=== PATIENT | female | born 1985 | race Caucasian/White ===

== ENCOUNTER 2019-05-01 13:27 | Outpatient (RCR) | payer OTHER, SELFPAY ==
[2019-05-01 14:31] VITALS: BP 131/71
== END 2019-07-28 07:46 | disposition home or self-care (01) ==
LOC: ANHOBOP 13:27
PROVIDERS: PCP Internal Medicine; Visit Provider Obstetrics & Gynecology
DX: O36.8130 Decreased fetal movements, third trimester, not applicable or unspecified (principal); Z3A.38 38 weeks gestation of pregnancy
CPT/HCPCS: 59025

== ENCOUNTER 2021-03-23 10:00 | Outpatient (RCR) | payer OTHER, SELFPAY ==
--- NOTE | 2021-02-09 14:14 | PTOPEVAL ---
INITIAL PHYSICAL THERAPY EVALUATION and PLAN OF CARE Thank you for referring Em Baez to [facility].? Em is scheduled to be seen for physical therapy? 2x/week for 6 weeks. Please review, sign, date and return this plan of care JAIDEN. I agree with and certify that the following plan of care is medically necessary. Referring Physician Date Admitting Provider: Attending Provider: Scott Morfin MD Referring Provider: *PT Outpatient Evaluation Start: 02/09/21 13:03 Freq: Status: Active Protocol: Document 02/09/21 13:03 RACHEL (Rec: 02/09/21 14:13 RACHEL [id number]) Therapy Assessment Status Assessment Status Assessment Status Evaluation Outpatient Past Medical History Past Medical History Source of Past Medical History Recalled from Previous Visit, Confirmed with Patient/Family Neurological History Hx Neurological Disorders No Significant History Cardiovascular History Hx Cardiac Disorders No Significant History Respiratory History Hx Asthma Yes Gastrointestinal History Hx Gastrointestinal Disorders No Significant History Genitourinary History Hx Genitourinary Disorders No Significant History Musculoskeletal History Hx Orthopedic Surgery Yes: L - Knee Surgery - arthroscopic Hematological History Hx Hematological Disorders No Significant History Endocrine History Hx Endocrine Disorders No Significant History HEENT History Hx Tonsillectomy Yes Integumentary History Hx Skin Disorders No Significant History Reproductive History Hx Section Yes: C/S X 4 Hx Other Reproductive Disorders Yes: D&C's - 2, D&E - 1 Psychosocial History Hx Psychiatric Disorders No Significant History Pain History History of Any Previous or Ongoing No Significant History Instance of Pain Anesthesia History Hx Anesthesia Reactions No Significant History Evaluation Information Problem Diagnosis L ankle lateral ligament injury/sprain Onset 12/07/2020 Subjective Information After initial injury - PCP - Query Text:As Reported By Patient/ had X ray, then returned 1 Family month later to PCP - had MRI - that's when she went into walking boot about 2 wks ago - then saw Dr. Morfin When coming out of [place] - hit a rock - rolled L ankle with full wt bearing, fell - hit back, door hit head. Did have increased pain until went into walking boot. Better in
--- NOTE | 2021-03-23 13:39 | PTOPEVAL ---
PHYSICAL THERAPY DISCHARGE SUMMARY Thank you for referring Em Baez to [facility].? Em has been seen x 10 visits. She has met all goals set. All higher level balance and proprioceptive activities are performed symmetrically. She is ready for d/c from PT. I agree with Em's discharge from PT. Referring Physician Date Admitting Provider: Attending Provider: Scott Morfin MD Referring Provider: Therapy Assessment Status Assessment Status Assessment Status Discharge Evaluation Information Problem Diagnosis L ankle lateral ligament injury/sprain Subjective Information Em reports that she is Query Text:As Reported By Patient/ back to usual activities - Family with children, with house, outside home, etc. No c/o's L ankle pain. She states there is mild edema at night - but gone by the morning. Pain Assessment Self Report Pain Assessment Left Ankle(s) Reported Pain Level 0 Lowest Pain Intensity 0 Greatest Pain Intensity 0 Lower Extremity Range of Motion Ankle/Foot Range of Motion Left Ankle Dorsiflexion With Knee Extension 10 Range of Motion - Active Ankle Dorsiflexion With Knee Flexed 12 Range of Motion - Active Ankle Plantarflexion Range of Motion - 70 Active Query Text: Ankle Eversion Range of Motion - Active 50 Ankle Inversion Range of Motion - Active 55 Lower Extremity Muscle Strength Testing Ankle Strength Left Ankle Plantarflexion Strength 5 Normal Ankle Strength Comments anterior tibialis 5 posterior tibialis 5 peroneal longus 5 peroneal brevis 5 Single leg stance - stopped at 1 min 20 sec Palpation Assessment Palpation Palpation no tenderness at anterior talofibular ligament Extremity Circumference Assessment Circumference Assessment Location Left Body Part Ankle Site Descriptor ([place]) supramalleolar Circumference Comments supramalleolar - R 23 cm L 23.8 cm Balance Assessment Time Up Go (TUG) Assistive Devices None Comments 7.22 seconds - symmetrical gait pattern General Exercise General Exercises Side Left Exercise Location ankle Exercise Type Active Exercise Description incline stretching - 30 sec Query Text:Record Sets, Reps, hold x 3 reps Resistance, and Position -BAPS board - single leg, UE -
== END 2021-05-10 09:45 | disposition home or self-care (01) ==
LOC: ANHHIPT 10:00
PROVIDERS: PCP Internal Medicine; Visit Provider Orthopaedic Surgery
DX: S93.492D Sprain of other ligament of left ankle, subsequent encounter (principal)
CPT/HCPCS: 97110; 97140; 97161

== ENCOUNTER 2022-08-08 17:32 | Emergency (ER) | payer OTHER, SELFPAY ==
--- NOTE | 2022-08-08 17:35 | ED.BACK ---
HPI - Back Pain/Injury General Chief Complaint: Back Pain/Injury Stated Complaint: Rt Back Pain Time Seen by Provider: 08/08/22 17:34 Source: patient Mode of arrival: ambulatory Limitations: no limitations History of Present Illness HPI Narrative: Em is a 36-year-old female patient presenting to the clinic today with complaints of right-sided thoracic back pain since Sunday. She reports she was setting up at the kitchen table getting ready to eat when she developed a sharp stabbing pain in the right upper back and into the right rib. She denies any injury or fall. She denies any chest pain or shortness of breath. Note upper respiratory symptoms or cough. She rates her pain 9/10 currently. Has been taking ibuprofen without relief Related Data Allergies Allergy/AdvReac Type Severity Reaction Status Date / Time cefaclor Allergy Unknown Unknown Verified 08/08/22 17:47 potassium chloride Allergy Unknown hives Verified 08/08/22 17:47 Review of Systems Review of Systems: Pertinent positives per HPI. Patient denies any fever, chills, rash, headache, visual changes, dizziness, cough, runny nose, sore throat, shortness of breath, chest pain, palpitations, nausea, vomiting, diarrhea, constipation, abdominal pain, or any urinary issues. PMFSH Past Medical History Medical History Asthma contractions Severe sprain of left ankle Surgical History Surgical History History of arthroscopy of left knee Family History Family History Father Malignant neoplasm of prostate Other Asthma Social History Social History Alcohol intake: current Substance use: never Gender identity (if verbalized by the patient): Female Spiritual care concerns: No Comments At the time of my signature, I reviewed and agree with the nursing past medical, surgical, social, and family history. There is no relevant family history pertinent to the patient complaint. Exam Narrative: General: Well-developed, well nourished, in no apparent distress Head: Normocephalic, atraumatic. Cardio: Regular rate and rhythm, s1 and s2 normal, no murmur appreciated. Resp: Clear to auscultation bilaterally, no rhonchi, rales, wheezing or rubs. Musculoskeletal: No deformity, tender to palpation over the right thoracic back chest adjacent to the axilla fall and tender over the right lower posterior ribs, no change in pain with respirations, grossly normal range of motion, muscle strength strong and equal, peripheral pulse strong, no edema, no cyanosis, normal gait and station Course Course Emergency Course: Portions of this record may have been created with voice recognition software. Level of Care: Express Care Visit Vital Signs Vital signs: Vital signs reviewed MDM - Back Pain/Injury MDM Narrative Medical decision making narrative: At the time of visit patient is resting comfortably on the exam table. Toradol 60 mg IM given in the clinic today. I suspect the patient has thoracic muscle wall pain. Supportive measures were discussed with the patient she voiced understanding of discharge instructions and agrees to treatment plan. Differential Diagnosis Differential diagnosis: Likely thoracic back pain and other (Pleurisy, muscle strain) Discharge Plan Discharge Clinical Impression: Acute right-sided back pain Patient Disposition: Home, Self-Care Condition: Stable Instructions: Antibiotic Form, Back Pain (ED) Additional Instructions: Toradol 60 mg IM given in the clinic today Take any prescription medication only as prescribed-Flexeril and prednisone Be mindful of sedation precautions given to you if taking a muscle relaxer. May use heat or ice to the affected area Consider mas
[2022-08-08 17:42] VITALS: BP 151/83; PULSE 64; RESP 16; TEMP 36.3; O2SAT 100
[2022-08-08] MEDS: KETOROLAC (*BKC) 60 MG/2 ML VIAL IM (17:58)
== END 2022-08-08 18:01 | disposition home or self-care (01) ==
PROVIDERS: Emergency Provider Nurse Practitioner Family
DX: M54.6 Pain in thoracic spine (principal); J45.909 Unspecified asthma, uncomplicated
CPT/HCPCS: 96372; 99213; G0463; J1885

== ENCOUNTER 2023-06-24 10:23 | Emergency (ER) | payer OTHER, SELFPAY ==
--- NOTE | 2023-06-24 10:32 | ED.GENADULT ---
HPI - General Adult General Chief complaint: Upper Respiratory Infection Stated complaint: sorethroat Time Seen by Provider: 06/24/23 10:32 Source: patient Mode of arrival: ambulatory Limitations: no limitations History of Present Illness HPI narrative: 37-year-old female patient presents to the [facility] with complaints of sore throat for the past 4-5 days. Patient denies any fevers, body aches or chills. Denies any chest pain, shortness of breath. Denies any abdominal pain, nausea, vomiting or diarrhea. Patient states she has a mild cough at times. Patient states she has been taking [id number] Tylenol cold and Sinus for her symptoms. Related Data Home Medications Medication Instructions Recorded Confirmed No Home Medications 06/24/23 06/24/23 Allergies Allergy/AdvReac Type Severity Reaction Status Date / Time cefaclor Allergy Unknown Unknown Verified 06/24/23 10:40 potassium chloride Allergy Unknown hives Verified 06/24/23 10:40 Review of Systems Review of Systems: CONSTITUTIONAL: Denies fever, chills, or sweats. EYES: Denies visual changes, redness, or discharge. ENT: Denies rhinorrhea, congestion, Positive sore throat, or otalgia. CARDIOVASCULAR: Denies chest pain, palpitations, or edema. RESPIRATORY: positive intermittent cough , denies dyspnea. GASTROINTESTINAL: Denies abdominal pain, nausea, vomiting, or diarrhea. GENITOURINARY: Denies dysuria or hematuria. SKIN: Denies rash or itching. MUSCULOSKELETAL: Denies back pain, joint pain, or myalgia. NEUROLOGIC: Denies headache, numbness, or weakness. PSYCHIATRIC: Denies anxiety or depression. [facility] Past Medical History Medical History Asthma contractions Severe sprain of left ankle Surgical History Surgical History History of arthroscopy of left knee Family History Family History Father Malignant neoplasm of prostate Other Asthma Social History Social History Alcohol intake: current Substance use: never Gender identity (if verbalized by the patient): Female Spiritual care concerns: No Comments At the time of my signature I agree with nursing past medical history, surgical, social, and family history. There is no relevant family history pertinent to the presenting complaint. Exam Narrative: GENERAL: Well-appearing, well-nourished, and in no acute distress. HEAD: Normocephalic, atraumatic. EYES: PERRLA and EOMI. ENT: Nares with erythema and edema noted bilaterally, no rhinorrhea or epistaxis. Mucous membranes moist. posterior pharynx with no erythema, tonsillar enlargement, exudates or lesions present. Bilateral TMs are clear no erythema or foreign bodies the canal. NECK: Supple. No lymphadenopathy CHEST: Clear to auscultation. No respiratory distress. HEART: Regular rate and rhythm. No murmur heard. Normal peripheral pulses. ABDOMEN: Soft, nontender, nondistended, normal active bowel sounds. EXTREMITIES: Normal range of motion. No edema. SKIN: Warm, dry, no rash. NEURO: No focal deficits. Alert and oriented x3. Course Course Level of Care: Express Care Visit Vital Signs Vital signs: Vital Signs Temperature 35.8 C L 06/24/23 10:44 Pulse Rate 72 06/24/23 10:44 Respiratory Rate 16 06/24/23 10:44 Blood Pressure 116/59 L 06/24/23 10:44 Pulse Oximetry 100 06/24/23 10:44 Oxygen Delivery Room Air 06/24/23 10:44 Temperature 35.8 C L 06/24/23 10:44 Pulse Rate 72 06/24/23 10:44 Respiratory Rate 16 06/24/23 10:44 Blood Pressure 116/59 L 06/24/23 10:44 Pulse Oximetry 100 06/24/23 10:44 Oxygen Delivery Room Air 06/24/23 10:44 vital signs reviewed. Medical Decision Making MDM Narrative Medical decision making narrative: Discussed with mega
[2023-06-24 10:44] VITALS: BP 116/59; PULSE 72; RESP 16; TEMP 35.8; O2SAT 100
== END 2023-06-24 10:54 | disposition home or self-care (01) ==
PROVIDERS: Emergency Provider Nurse Practitioner Family
DX: J02.8 Acute pharyngitis due to other specified organisms (principal)
CPT/HCPCS: 87081; 87880; 99213; G0463

== ENCOUNTER 2024-05-29 13:37 | Outpatient (CLI) | payer OTHER, SELFPAY ==
[2024-05-29 15:31] LABS: Basophils Percent Auto 0.3 % (0.2-1.2); Eosinophils Absolute Auto 0.1 K/mm3 (0-0.3); Hematocrit 35.9 % (37.0-47.0); Hemoglobin 12.4 g/dL (12.0-15.0); Immature Granulocyte Absolute 0.06 K/mm3 (0.00-0.031); Lymphocytes Absolute Auto 1.53 K/mm3 (0.9-3.2); Lymphocytes Percent Auto 25.3 % (18.3-44.2); Mean Corpuscular HGB Conc 34.5 g/dl (32-36); Mean Corpuscular Volume 84.1 fl (80-100); Mean Platelet Volume 10.3 fl (7.4-10.4); Monocytes Absolute Auto 0.4 K/mm3 (0.1-0.6); Monocytes Percent Auto 7.1 % (2.6-8.5); Neutrophils Percent Auto 65.3 % (45.5-73.1); Platelet Count Result 217 k/mm3 (150-375); Red Blood Count 4.27 M/mm3 (4.2-5.4); Red Cell Distribution Width 12.9 % (11.5-14.5); White Blood Count 6.1 K/mm3 (4.5-10.0)
== END 2024-05-29 13:38 | disposition home or self-care (01) ==
PROVIDERS: Visit Provider Obstetrics & Gynecology
DX: R58 Hemorrhage, not elsewhere classified (principal)
CPT/HCPCS: 36415; 85025; 86850; 86900; 86901

== ENCOUNTER 2024-06-02 00:21 | Day surgery (SDC) | payer OTHER, SELFPAY ==
--- NOTE | 2024-05-29 11:34 | PM.IMHP ---
H&P: HPI History of Present Illness Date/Time: 05/29/24 11:34 Chief Complaint: Symptomatic uterine fibroids Narrative: 38-year-old female for robotic hysterectomy and bilateral salpingectomy secondary to enlarged uterus with fibroids. She has had a previous ablation which was on the successful. Risks and benefits reviewed including not exclusive of aspiration any bleeding transfusion infection perforation injury to bowel bladder ureters or other internal organs with need for open laparotomy. She received [employer] handout entitled hysterectomy as well as de Adelina handout. She had all questions answered. She asked to proceed. Review of Systems Review of Systems: CONSTITUTIONAL: Denies fever, chills, or sweats. EYES: Denies visual changes, redness, or discharge. ENT: Denies rhinorrhea, congestion, Positive sore throat, or otalgia. CARDIOVASCULAR: Denies chest pain, palpitations, or edema. RESPIRATORY: positive intermittent cough , denies dyspnea. GASTROINTESTINAL: Denies abdominal pain, nausea, vomiting, or diarrhea. GENITOURINARY: Denies dysuria or hematuria. SKIN: Denies rash or itching. MUSCULOSKELETAL: Denies back pain, joint pain, or myalgia. NEUROLOGIC: Denies headache, numbness, or weakness. PSYCHIATRIC: Denies anxiety or depression. [facility] Past Medical History Medical History Asthma Severe sprain of left ankle contractions Surgical History Surgical History History of arthroscopy of left knee Family History Family History Father Malignant neoplasm of prostate Other Asthma Social History Social History Alcohol intake: current Substance use: never Gender identity (if verbalized by the patient): Female Spiritual care concerns: No Meds Home Medications and Allergies Home Medications ?Medication ?Instructions ?Recorded ?Confirmed ?Type No Home Medications 06/24/23 06/24/23 History Allergies Allergy/AdvReac Type Severity Reaction Status Date / Time cefaclor Allergy Unknown Unknown Verified 06/24/23 10:40 potassium chloride Allergy Unknown hives Verified 06/24/23 10:40 Exam Const: General: cooperative, healthy appearing and comfortable Orientation/consciousness: oriented to person, oriented to place and oriented to time HENMT: Head: normal to inspection Resp: Effort & Inspection: normal respiratory effort Cardio: Rate: regular rate Rhythm: regular rhythm Heart sounds: S1 normal heart sound present and S2 normal heart sound present GI: Inspection: normal to inspection Auscultation: normal bowel sounds : External Female Exam: normal external appearance Speculum Exam - Vagina: normal appearance of the vagina Speculum Exam - Cervix: normal appearance of the cervix Bimanual exam- vagina & uterus: enlarged and Uterine tenderness Bimanual Exam- Adnexa, other: normal adnexae Assessment and Plan Assessment and plan (1) Uterine fibroid: Code(s): D25.9 - Leiomyoma of uterus, unspecified Status: Acute (2) Excessive bleeding: Code(s): R58 - Hemorrhage, not elsewhere classified Status: Acute Plan robotic total vaginal hysterectomy and bilateral salpingectomy
[2024-05-29 11:59] VITALS: BMI 29.2
--- NOTE | 2024-05-29 12:06 | PC.NURSE ---
Report to the Outpatient Waiting Room, entrance under the green pavilion located off [facility], at time _1100_ on date _[id number]_. Planned Procedure Time: _1pm_.? Time changes happen often and if your time is changed the preop area will call you the afternoon before. - You and your visitor will be asked to self-screen and do not enter if you have any COVID symptoms. Please call surgeon if you need to reschedule. - A mask is optional within the hospital at this time. Patients may have clear liquids (water, carbonated beverages, clear teas, apple juice) until 3 hours prior to surgery with a maximum of 20 ounces. - No food from midnight until time of surgery and no smoking. This includes no chewing gum, candy or mints. Take only the following medications with a SIP of water on the morning of surgery: ____None DO NOT STOP ANY OF YOUR OTHER PRESCRIPTION MEDICATIONS PRIOR TO SURGERY EXCEPT THE FOLLOWING Medications to discontinue per physician ___None____ Please no make-up, nail indonesian, hairspray, perfume, deodorant, or body powder the day of surgery.? No jewelry (including any body piercings) or valuables the day of surgery, leave them at home.? Please take a shower or bath the night before, or the morning of, surgery with an antibacterial soap.? Wear comfortable, loose fitting clothing.? . - Jewelry must be removed prior to entering the operating room.? Rings and piercings that are not removed may be cut off. - The hospital will not accept responsibility for valuables.? - Please leave all valuables, including medications, at home the day of surgery. If you are going home after surgery, a licensed milk driver must drive you home.? - NO public transportation without another adult if you receive anesthesia. - We recommend that an adult stay with you for 24 hours following discharge. - We also recommend that you do not drive, make important decision, drink alcoholic beverages, or take any drugs that were not prescribed by your health care provider for at least 24 hours after your discharge time. Follow any additional instructions given to you from your surgeon. Telephone instructions given to _Em__and asked if any additional questions and then verbalized understanding. Patient advised to call surgeon office or pre surgery nurse liaison [phone] if any additional questions.
[2024-06-02] VITALS (13 sets, daily range): BP systolic 93–109; BP diastolic 45–61; PULSE 56–73; RESP 12–20; TEMP 36.3–36.7; O2SAT 95–100
--- NOTE | 2024-06-02 06:42 | WPDHPUPDATE1 ---
History and Physical Update Update Date/Time: 06/02/24 06:42 History and Physical has been reviewed, including an updated exam of the patient. There are NO changes in the patient's condition. Risks, benefits, and alternatives have been discussed and questions answered. Patient agrees to proceed with procedure.
[2024-06-02] MEDS: ACETAMINOPHEN 500 MG TABLET 1000 MG PO ×3 (11:30→23:13)
[2024-06-02] MEDS: KETOROLAC 15 MG/ML VIAL (*BKC) IV PUSH (12:00)
[2024-06-02 12:10] LABS: BEDSIDEPREGUCG Negative (Negative)
--- NOTE | 2024-06-02 13:11 | WPDANESEPPF ---
Anes - Initial Pre Proc Eval Procedure: Operation Date: 06/02/24 12:00 Proposed Procedures p Robotic Assisted Total Vaginal Hysterectomy, Bilateral Salpingectomy - Hayden Mccoy MD Date/Time: 06/02/24 13:11 Surgeon: Hayden Mccoy MD Pre Op Diagnosis: pain, bleeding Patient Data Age: 38 Gender: F Height: 1.57 m Weight: 72.57 kg Last Vital Signs Temp 36.3 C L 06/02/24 11:00 Pulse 56 L 06/02/24 11:00 Resp 14 06/02/24 11:00 BP 103/57 L 06/02/24 11:00 Pulse Ox 100 06/02/24 11:00 O2 Del Method Room Air 06/02/24 11:00 Allergies Allergy/AdvReac Type Severity Reaction Status Date / Time cefaclor Allergy Unknown Unknown Verified 06/02/24 12:06 potassium chloride Allergy Unknown hives Verified 06/02/24 12:06 Home Medications ?Medication ?Instructions ?Recorded ?Confirmed ?Type hydrocodone 5 mg-acetaminophen 325 1 tablet PO Q4H PRN pain #20 tabs 06/02/24 Rx mg tablet Laboratory Tests 06/02/24 11:00 POC Urine HCG, Qual Negative (Negative) Patient hx anesthesia problems: none Family hx anesthesia problems: none Results Review: All pre-operative results and documents have been reviewed as part of the pre-operative evaluation. [facility] Past Medical History Medical History Asthma Severe sprain of left ankle contractions Surgical History Surgical History History of arthroscopy of left knee Family History Family History Father Malignant neoplasm of prostate Other Asthma Social History Social History Smoking status: Never smoker Alcohol intake: current Substance use: never Living arrangements: with family Gender identity (if verbalized by the patient): Female Spiritual care concerns: No Anes - Eval Final PreProcedure Day of Procedure 06/02/24 13:11 Patient weight: overweight Heart: regular rate and rhythm Lungs: clear to auscultation Airway: Mallampati scale class II Neurological: alert and oriented Last oral intake: >/= 8 hours ASA classification: II Emergent: no Anesthetic plan: proceed Anesthesia type and monitoring: general ETT and standard monitoring Results Review: All pre-operative results and documents have been reviewed as part of the pre-operative evaluation. Informed Consent: The patient's anesthetic plan and its attendant risks and benefits were discussed with the patient/family/POA. Questions were solicited and answers provided to the satisfaction of the patient/family/POA.
[2024-06-02] MEDS: CLINDAMYCIN 900 MG/D5W 50 ML 900 MG/50 ML PIGGYBACK 50 MG IVPB (13:15)
--- NOTE | 2024-06-02 14:15 | P.OP_ITS ---
Procedure Note - Detailed Date of Procedure 06/02/24 Pre-op Diagnosis pain, bleeding Post-op Diagnosis Same Procedure Performed Robotic total vaginal hysterectomy salpingectomy Surgeon Hayden Mccoy MD Anesthesia General Indications 38-year-old female with enlarged uterus excessive bleeding refractory medical therapy Findings Markedly enlarged uterus. Bilateral tubal ligation. Ovaries. Description of Procedure The patient was prepped draped in sterile fashion placed in dorsal lithotomy position. Under excellent general trach anesthesia weighted speculum placed posterior fornix vagina. Anterior lip of the cervix grasped with single-tooth tenaculum. Uterus sounded to 11cm. Serial dilatation with fragmented dilators performed followed by passage of the 10. GILBERT and the 3. Cold cup. Next the 16 [place] catheter was placed in the bladder and a weighted speculum the single- tooth removed. The gloves were changed. Next a supraumbilical incision made. Veress needle passed in the abdomen. Abdomen filled with CO2 gas [id number]. The 8mm trocar advanced in the abdomen. Downside visualized no injury seen. Patient placed in Trendelenburg and right left lateral quadrant incisions made. 8mm trocars were advanced under direct visualization assuring no injury. A right upper quadrant incision made the 8mm trocar advanced under direct visualization assuring no injury. The robot was docked. Attention was turned to the savings counselor. The left round ligament was grasped, burned, cut. Anteriorly a bladder flap was formed by sharply dissecting the previously scarred tissue layer by layer until reaching the opposite round ligament which was clamped, burned, cut. The low portion of the distal portion of the left fallopian tube was grasped and removed from the ovary and passed through the right lower upper quadrant incision. The stump of the tube was left. In similar fashion distal portion of the right fallopian tube was grasped and burned passed off through the right upper quadrant incision. The stump was left at the uterine origin. The left utero-ovarian ligament was skeletonized to conserve the left ovary clamped, burned, cut and brought to level of previously cut round ligament. In similar fashion on the right the utero-ovarian ligament was clamped, burned, cut brought to level of previously cut round ligament the os conserving the right ovary. The left cardinal broad ligaments were skeletonized clamping burning cutting and hugging the cervix uterus until the large tortuous uterine vessels were seen on the left these were individually clamped, burned, cut. In similar fashion on the right the cardinal broad ligaments were serially skeletonized clamping burning cutting and hugging the cervix uterus until the tortuous uterine vessels were seen on the right these we re individually clamped, burned, cut. At this point hemostasis was assured and blanching the uterus was noted colpotomy incision was made in the cervix uterus and stumps of tubes removed through the vagina. The vagina then closed with continuous running locking 0V lock from lateral edge to lateral edge. Hemostasis was assured and [place] term placed over the raw surface area. Blood loss estimated 25cc. The robot was undocked. The gas removed from the abdomen. The trocar sites removed the incisions closed with 4 Monocryl and glue. The instruments removed from the vagina and the patient was awakened. She went to recovery in satisfactory condition. All sponge, needle, instrument counts were correct. There were no immediate complications Estimated Blood Loss 25 Drains No Packing No Pathology Yes Complications No immediate complications Condition Stable Disposition PACU
--- NOTE | 2024-06-02 14:19 | PM.DS ---
DS: Admitting Diagnosis Discharge Date 06/03/2024 Admitting Diagnosis Excessive bleeding and enlarged uterus DS: Discharge Diagnosis Discharge Diagnosis (1) Excessive bleeding: Code(s): R58 - Hemorrhage, not elsewhere classified Status: Acute (2) Uterine fibroid: Code(s): D25.9 - Leiomyoma of uterus, unspecified Status: Acute DS: Summary Hospital Course Reason for hospitalization: Patient was admitted for robotic total vaginal hysterectomy bilateral salpingectomy on 06/02/2024 and the procedure was unremarkable. Hospital Course: Patient's hospital course unremarkable. She remained afebrile. She was up, voiding without difficulty, eating regular diet, ambulating, and generally without complaints. Time Spent with Patient Time attestation: Total time spent providing and/or coordinating discharge services: Exam Const: General: cooperative, healthy appearing and comfortable Nutritional Appearance: average body habitus Orientation/consciousness: oriented to person, oriented to place and oriented to time HENMT: Head: normal to inspection Resp: Effort & Inspection: normal respiratory effort Cardio: Rate: regular rate Rhythm: regular rhythm Heart sounds: S1 normal heart sound present and S2 normal heart sound present GI: Inspection: normal to inspection and incision (Wounds are clean dry and intact) DS: Data Data Completed and Pending Pending studies at discharge: Pending at discharge 06/02/24 14:00 Surgical [PTH] Routine Labs on day of discharge: Labs from last 24 hours 06/02/24 11:00 POC Urine HCG, Qual Negative Discharge Plan Discharge Patient Disposition: Home, Self-Care Patient Language: Marshallese Stand Alone Forms: General Discharge Instructions Follow-up/Referrals: Hayden Richard MD [Physician] - Discharge Medications: New hydrocodone-acetaminophen 5-325 mg tablet 1 tablet PO Q4H PRN (Reason: pain) Qty: 20 0RF
[2024-06-02] MEDS: LACTATED RINGERS 1,000 ML 30 ML IV CONT ×2 (14:33→15:01)
[2024-06-02] MEDS: fentaNYL CITRATE INJ (*CRX) 100 MCG/2 ML VIAL 25 MCG IV PUSH ×4 (14:55→15:10)
[2024-06-02] MEDS: SIMETHICONE 80 MG TAB.CHEW PO (17:15)
[2024-06-02] MEDS: DEXTROSE 5%/LACTATED RINGERS 1,000 ML 125 ML IV CONT ×2 (17:15→22:09)
[2024-06-02] MEDS: KETOROLAC 30 MG/ML VIAL (*BKC) IV PUSH ×2 (17:16→23:14)
[2024-06-02] MEDS: DOCUSATE SODIUM 100 MG CAPSULE PO (17:17)
--- NOTE | 2024-06-02 17:47 | ADMGEN ---
This patient, Em Baez, was admitted to OB 2nd Floor Room 289-00. Patient/family oriented to hospital policies and general routines including ID bracelet, bed and alarms, visiting hours, pain management, procedures, bathroom and other care routines, personal items, smoking policy, room service/diet, and visiting hours. Information on how to activate the Rapid Response Team has been discussed. Patient/Family are encouraged to report perceived risks to care and to ask questions if they do not understand what they are told or what they should do.
[2024-06-02] MEDS: ONDANSETRON INJ 4 MG/2 ML VIAL IV PUSH (18:00)
--- NOTE | 2024-06-02 22:25 | PC.NURSE ---
Addendum entered by Nicci Berumen RN 06/02/24 22:37: 2119-Repeat blood pressure taken 101/60 Original Note: 1939- Spoke with DR Liza Mccoy about patient having low blood pressures (96/47) and low urine output (50mL in 4 hours). Orders received to give patient a 500 mL bolus. 1999- Used bladder scanner to scan bladder, showed 1mL of urine. Cortez patent and small amounts of urine flowing.
[2024-06-03] MEDS: ACETAMINOPHEN 500 MG TABLET 1000 MG PO ×2 (04:38→10:37)
[2024-06-03] MEDS: KETOROLAC 30 MG/ML VIAL (*BKC) IV PUSH (04:39)
[2024-06-03 05:12] VITALS: BP 89/53; PULSE 70; RESP 16; TEMP 36.7; O2SAT 100
[2024-06-03 05:26] LABS: Basophils Percent Auto 0.3 % (0.2-1.2); Eosinophils Percent Auto 0.2 % (0-4.4); Hematocrit 32.7 % (37.0-47.0); Hemoglobin 11.4 g/dL (12.0-15.0); Immature Granulocyte Absolute 0.03 K/mm3 (0.00-0.031); Immature Granulocyte Percent A 0.3 % (0-0.5); Lymphocytes Absolute Auto 1.29 K/mm3 (0.9-3.2); Lymphocytes Percent Auto 14.9 % (18.3-44.2); Mean Corpuscular HGB Conc 34.9 g/dl (32-36); Mean Corpuscular Hemoglobin 29.2 pg (26-34); Mean Corpuscular Volume 83.6 fl (80-100); Mean Platelet Volume 10.3 fl (7.4-10.4); Monocytes Absolute Auto 0.6 K/mm3 (0.1-0.6); Monocytes Percent Auto 6.6 % (2.6-8.5); Neutrophils Absolute Auto 6.7 K/mm3 (1.3-6.7); Neutrophils Percent Auto 77.7 % (45.5-73.1); Platelet Count Result 224 k/mm3 (150-375); Red Blood Count 3.91 M/mm3 (4.2-5.4); Red Cell Distribution Width 13.2 % (11.5-14.5); White Blood Count 8.6 K/mm3 (4.5-10.0)
--- NOTE | 2024-06-03 07:27 | PM.GYNPNOP ---
DIRECTOR OF EDUCATION - A/P Assessment and plan (1) Excessive bleeding: Code(s): R58 - Hemorrhage, not elsewhere classified Status: Acute (2) Uterine fibroid: Code(s): D25.9 - Leiomyoma of uterus, unspecified Status: Acute Assessment and Plan: home Postoperative Procedures: Procedures Operation Date: 06/02/24 12:00 Actual Procedure Side Surgeon p Robotic Assisted Total Vaginal Hysterectomy, Bilateral Salpingectomy Bilateral Hayden Mccoy MD Time Spent With Patient Time: Total time spent is greater than 50% in coordination of care (as documented) at patient's floor/unit and/or counseling patient: Time with patient: less than 15 minutes DIRECTOR OF EDUCATION- PN:Subj Post-Op Subjective Date/time seen: 06/03/24 07:27 Subjective: patient reports feeling better, patient has no complaints, patient desires discharge, pain is well controlled and patient is tolerating oral intake Exam Const: General: cooperative, healthy appearing and comfortable Nutritional Appearance: average body habitus Orientation/consciousness: oriented to person, oriented to place and oriented to time HENMT: Head: normal to inspection Resp: Effort & Inspection: normal respiratory effort Cardio: Rate: regular rate Rhythm: regular rhythm Heart sounds: S1 normal heart sound present and S2 normal heart sound present GI: Inspection: normal to inspection and incision (Wounds are clean dry and intact) DIRECTOR OF EDUCATION - PN: Obj Data Vital Signs Vital Signs: Vital Signs - 24 hr 06/02/24 11:00 06/02/24 14:33 06/02/24 14:50 Temperature 97.3 F L 97.7 F Pulse Rate 56 L 72 73 Respiratory Rate 14 14 15 Blood Pressure 103/57 L 96/51 L 98/52 L Pulse Oximetry 100 100 100 Oxygen Delivery Room Air Simple Face Mask Simple Face Mask Oxygen Flow Rate 8 8 06/02/24 15:05 06/02/24 15:20 06/02/24 15:35 Temperature Pulse Rate 60 64 61 Respiratory Rate 14 15 12 Blood Pressure 95/52 L 102/45 L 96/46 L Pulse Oximetry 100 100 96 Oxygen Delivery Room Air Room Air Room Air Oxygen Flow Rate 06/02/24 15:50 06/02/24 16:05 06/02/24 17:00 Temperature 97.6 F Pulse Rate 66 69 65 Respiratory Rate 14 12 20 Blood Pressure 95/51 L 109/58 L 93/50 L Pulse Oximetry 95 95 97 Oxygen Delivery Room Air Room Air Oxygen Flow Rate 06/02/24 19:51 06/02/24 20:00 06/02/24 21:19 Temperature 98.1 F 98.1 F Pulse Rate 59 L 59 L Respiratory Rate 14 14 Blood Pressure 96/49 L 96/47 L 101/60 Pulse Oximetry 100 100 Oxygen Delivery Room Air Oxygen Flow Rate 06/02/24 23:18 06/03/24 05:12 Temperature 97.7 F 98.1 F Pulse Rate 58 L 70 Respiratory Rate 16 16 Blood Pressure 103/61 89/53 L Pulse Oximetry 99 100 Oxygen Delivery Oxygen Flow Rate Intake/Output Intake/Output: Intake & Output 05/31/24 06/01/24 06/02/24 06/03/24 23:59 23:59 23:59 23:59 Intake Total 2712.5 200 Output Total 390 750 Balance 2322.5 -550 Meds/Results Medications: Active Medications Generic Name Dose Route Start Last Admin Trade Name Freq PRN Reason Stop Dose Admin Acetaminophen 1,000 mg 06/02/24 18:00 06/03/24 04:38 Acetaminophen 500 Mg Tablet PO 1,000 mg Q6HR ANGEL Administration Docusate Sodium 100 mg 06/02/24 17:00 06/02/24 17:17 Docusate Sodium 100 Mg Capsule PO 100 mg BID ANGEL Administration Enoxaparin Sodium 40 mg 06/03/24 09:00 Enoxaparin 40 Mg/0.4 Ml Syringe SUB-Q DAILY ANGEL Dextrose/Lactated Ringer's 1,000 mls @ 125 mls/hr 06/02/24 16:10 06/02/24 22:09 Dextrose 5%/Lactated Ringers IV CONT 125 mls/hr .Q8H ANGEL Administration Ibuprofen 600 mg 06/03/24 12:00 Ibuprofen 600 Mg Tablet PO Q6HR ANGEL Naloxone HCl 0.1 mg 06/02/24 16:10 Naloxone Hcl 0.4 Mg/Ml Vial IV PUSH Q2M PRN Respiratory rate less than 10 Ondansetron HCl 4 mg 06/02/24 16:10 06/02/24 18:00 Ondansetron Inj 4 Mg/2 Ml Vial IV PUSH 4 mg Q6H PRN Administration Nausea And Vomiting Oxycodone HCl 5 mg 06/02/24 16:10 Oxycodone Hcl (*Crx) 5 Mg Tab Ir PO Q4H PRN Pain Rated 4-6 Oxycodone HCl 10 mg 06/02/24 16:10 Oxycodone Hcl (*Crx) 5 Mg Tab Ir PO Q6H PRN Pain Rated 7-10 Simethicone 80 mg 06/02/24 17:00 06/02/24 17:15 Simethicone 80 Mg Tab.Chew PO 80 mg TIDWM ANGEL Administration Labs 06/03/24 04:53 Labs: Laboratory Results - last 24 hr 06/02/24 06/03/24 11:00 04:53 WBC 8.6 RBC 3.91 L Hgb 11.4 L Hct 32.7 L MCV 83.6 MCH 29.2 MCHC 34.9 RDW 13.2 Plt Count 224 MPV 10.3 Immature Gran % (Auto) 0.3 Neut % (Auto) 77.7 H Lymph % (Auto) 14.[address] [place] % (Auto) 6.6 Eos % (Auto) 0.2 Baso % (Auto) 0.3 Lymph # (Auto) 1.29 [place] # (Auto) 0.6 Eos # (Auto) 0.0 Baso # (Auto) 0.0 Abs Immat Gran (auto) 0.03 Absolute Neuts (auto) 6.7 Absolute Nucleated RBC 0.000 Nucleated RBC % 0.0 POC Urine HCG, Qual Negative
[2024-06-03 07:35] VITALS: BP 97/50; PULSE 62; RESP 16; TEMP 36.8; O2SAT 100
[2024-06-03] MEDS: DOCUSATE SODIUM 100 MG CAPSULE PO (07:52)
[2024-06-03] MEDS: SIMETHICONE 80 MG TAB.CHEW PO (07:52)
[2024-06-03] MEDS: ENOXAPARIN 40 MG/0.4 ML SYRINGE SUB-Q (07:53)
[2024-06-03] MEDS: IBUPROFEN 600 MG TABLET PO (10:37)
--- OUTSIDE RECORDS SUMMARY | 2024-06-07 07:47 | XMS_ITS | Encounter Summary ---
Author Organization [facility] Address [address] [place] [address]. [place] [address] [place] [address] Care Team Providers Care Bead Preparer Name Role Phone Cong Restrepo MD Primary Care Provider [phone] Encounter Details Date Type Department Care Team (Latest Contact Info) Description 10/06/2022 12:46 PM CDT - 10/06/2022 11:59 PM CDT Hospital Encounter [facility] [address] [place] [address] [place] [address] [facility] [address] [place] [address] Discharge Disposition: Home or Self Care (Routine Discharge) Social History Tobacco Use Types Packs/Day Years Used Date Smoking Tobacco: Never Smokeless Tobacco: Never Alcohol Use Standard Drinks/Week Comments Not Currently 0 (1 standard drink = 0.6 oz pur e alcohol) PHQ-2 Answer Date Recorded Patient Health Questionnaire-2 Score 0 10/06/2022 Comments No Sex and Gender Information Value Date Recorded Sex Assigned at Not on file Legal Sex Female 4:36 PM CDT Gender Identity Not on file Sexual Orientation Not on file COVID-19 Exposure Response Date Recorded In the last 10 days, have yo u been in contact with someone who was confirmed or suspected to have Coronavirus/COVID-19? No / Unsure 10/06/2022 10:53 AM CDT documented as of this encounter Plan of Treatment Not on file documented as of this encounter Procedures Procedure Name Priority Date/Time Associated Diagnosis Comments MUMPS AB IGG Routine 10/06/2022 11:49 AM CDT Immunity status testing RUBEOLA IGG Routine 10/06/2022 11:49 AM CDT Immunity status testing RUBELLA IGG Routine 10/06/2022 11:49 AM CDT Immunity status testing documented in this encounter Results * (ABNORMAL) MUMPS AB IGG (10/06/2022 11:49 AM CDT) MUMPS IGG EIA <9.00(L) AU/mL 10/11/2022 11:11 AM CDT [facility] Comment: ?? AU/mL ? Interpretation ? < 9.00 ?Not consistent with immunity 9.00 - 10.99 ?? Equivocal ??> 10.99 ?Consistent with immunity The presence of mumps IgG antibody suggests immunization or past or current infection with mumps virus. Test Performed by Olamide Lozoya, [facility] [facility] [place], [address] [place] [address] Gerhard Mccormick M.D., Ph.D., Director of Laboratories , [facility] [id number] 10/06/2022 11:4 9 AM CDT us Angi Aceves NP LABORATORY Final Result [facility] [address] [place] [address] , * RUBEOLA IGG (10/06/2022 11:49 AM CDT) RUBEOLA IGG 16.60 AU/mL 10/12/2022 11:12 AM CDT [facility] Comment: ?AU/mL ? Interpretation ?<13.50 ?Not consistent with immunity 13.50 - 16.49 ?Equivocal ?>16.49 ?Consistent with immunity The presence of measles IgG suggests immunization or past or current infection with measles virus. For additional information, please refer to http://education.[employer]/faq/PXG810 (This link is being provided for informational/ educational purposes only.) Test Performed by [employer], [facility], [address] [place] [address] Gerhard Mccormick M.D., Ph.D., Director of Laboratories , [facility] [id number] 10/06/2022 11:4 9 AM CDT Angi Aceves NP LABORATORY Final Result [facility] [address] [id number], * RUBELLA IGG (10/06/2022 11:49 AM CDT) RUBELLA IGG AB 22.10 10/06/2022 7:51 PM CDT [facility] Comment: IMMUNITY PRESENT RUBELLA IGG ANTIBODY INTERPRETATION <5 IU/ML SUGGESTS NONIMMUNITY >=5 TO <10 IU/ML EQUIVOCAL RANGE >=10 IU/ML SUGGESTS IMMUNITY FOR SPECIMENS IN THE EQUIVOCAL RANGE, A ?? NEW SPECIMEN SHOULD BE OBTAINED IN 6 WEEKS ?? AND RETESTED FOR RUBELLA IGG ANTIBODY. ?? ANTIBODY LEVELS IN THE EQUIVOCAL RANGE ?? MAY BE INSUFFICIENT TO PROTECT AGAINST ?? CLINICAL ILLNESS UPON EXPOSURE TO ?? RUBELLA VIRUS. 10/06/2022 11:4 9 AM CDT us Angi Aceves DRY LUMBER GRADER LABORATORY Final Result Performing Organization Address City/State/[facility] Co de Phone Number [facility] [address] [place] [address], documented in this encounter Visit Diagnoses Diagnosis Immunity status testing Antibody response examination documented in this encounter Care Teams Bead Preparer Relationship Specialty Start Date End Date Cong Restrepo MD [address] [place] [address] PCP - General INTERNAL MEDICINE 12/09/20 03/25/23 documented as of this encounter
--- OUTSIDE RECORDS SUMMARY | 2024-06-07 07:47 | XMS_ITS | Encounter Summary ---
Author Organization [facility] Address [address] [place] [address]. [place], [place] [address] [place] [address] Care Team Providers Care Ore Bridge Operator Name Role Phone Angi Aceves NP Primary Care Provider [phone] Reason for Visit * Reason Onset Date Comments Medication Request 07/27/2023 Encounter Details Date Type Department Care Team (Late st Contact Info) Description 07/27/2023 Telephone [facility] Medical Group Family & Internal Medicine [facility] [id number] [place] [phone] [place] [address] [facility] [address] [place] [address] Medication Request Social History Tobacco Use Types Packs/Day Years [...] on file Sexual Orientation Not on file documented as of this encounter Progress Notes * Jaqueline Ace RN - 07/30/2023 8:57 AM CST Spoke to Em & informed that Angi sent out medication, v/u. NG ADVISOR * Angi Aceves NP - 07/27/2023 4:32 PM CST Called and spoke with patient. She has symptoms of pain and drainage in the right eye. Allergies verified as well. I will order ABX for treatment. NG ADVISOR * Phani Rosenthal - 07/27/2023 9:52 AM CST Pt's daughters were diagnosed with pink eye and she will like to know if she can have a prescription with out being seen, she has some of the symptoms.Please advise. Both daughters were seen in the [place] today 07/27/2023. NG ADVISOR documented in this encounter Plan of Treatment Not on file documented as of this encounter Visit Diagnoses Diagnosis Acute bacterial conjunctivitis of right eye- Primary documented in this encounter Care Teams Ore Bridge Operator Relationship Specialty [place] [address] [facility] [address] [facility] [place] [address] PCP - General Nurse Practitioner Family 03/26/23 documented as of this encounter
--- OUTSIDE RECORDS SUMMARY | 2024-06-07 07:47 | XMS_ITS | Encounter Summary ---
Author Organization [facility] Address [address] [place] [address]. [place], [place] [address] [place] [address] Care Team Providers Care Disintegrator Feeder Name Role Phone Cong Restrepo MD Primary Care Provider [phone] Encounter Details Date Type Department Care Team (Latest Contact Info) Description 10/06/2022 Travel Social History Tobacco Use Types Packs/Day Years [...] documented as of this encounter Visit Diagnoses Not on filedocumented in this encounter Care Teams Disintegrator Feeder Relationship Specialty Start Date End Date Cong Restrepo MD [address] [place] [address] PCP - General INTERNAL MEDICINE 12/09/20 03/25/23 documented as of this encounter
--- OUTSIDE RECORDS SUMMARY | 2024-06-07 07:47 | XMS_ITS | Encounter Summary ---
Author Organization [facility] Address [address] [place] [address]. [place], [place] [address] [place] [address] Care Team Providers Care Hat Lacer Name Role Phone Angi Aceves NP Primary Care Provider [phone] Encounter Details Date Type Department Care Team (Latest Contact Info) Description 06/24/2023 Scan [facility] INFO SRVCS Scanned, Doc Med Group Social History Tobacco Use Types Packs/Day Years [...] on file documented as of this encounter Plan of Treatment Not on file documented as of this encounter Visit Diagnoses Not on filedocumented in this encounter Care Teams Hat Lacer Relationship Specialty [place] [address] [facility] [address] [address] PCP - General Nurse Practitioner Family 03/26/23 documented as of this encounter
--- OUTSIDE RECORDS SUMMARY | 2024-06-07 07:47 | XMS_ITS | Encounter Summary ---
Author Organization [facility] Address [address] [place] [address]. [place], [place] [address] [place] [address] Care Team Providers Care Mountain Bike Guide Name Role Phone Cong Restrepo MD Primary Care Provider [phone] Reason for Visit * Reason Comments Imm/Inj 1 dose MMR per Nesha Aceves NP Encounter Details Date Type Department Care Team (Latest Contact Info) Description 10/13/2022 10:00 AM CDT Allied Health/Nurse Visit [facility] Medical Group Family & Internal Medicine [facility] [id number] [place] [phone] [place] [id number] [place] [address]. [place] [address] Imm/Inj (1 dose MMR per Angi Aceves NP) Social History Tobacco Use Types Packs/Day Years [...] suspected to have Coronavirus/COVID-19? No / Unsure 10/13/2022 9:56 AM CDT documented as of this encounter Progress Notes * Roney Apodaca RN - 10/13/2022 10:00 AM CDT Patient here for 1 dose of MMR per Angi Aceves Np. Urine test was completed and negative. MMR administered into Right Deltoid. Patient tolerated well. documented in this encounter Plan of Treatment Not on file documented as of this encounter Procedures Procedure Name Priority Date/Time Associated Diagnosis Comments TEST URINE Routine 10/13/2022 Encounter for test documented in this encounter Results * TEST URINE (10/13/2022) URINE HCG TEST NEGATIVE [id number] NORYXLER RANJIT EVANS Internal Control: VALID -[id number] SRAVANI CHURCH EVANS URINE SPECIMEN FROM URETHRA / Unknown 10/13/2022 us Angi Aceves ELECTRIC SCOOP OPERATOR URINE ORDERABLES Final Resul t -[id number] [facility] [address] [address] [place] [address], documented in this encounter Visit Diagnoses Diagnosis ([facility])- Primary state, incidental Encounter for test examination or test, unconfirmed Need for prophylactic vaccination with pcmtlla-rjfmy-duwkpdy (MMR) vaccine documented in this encounter Care Teams Mountain Bike Guide Relationship Specialty Start Date End Date Cong Restrepo MD [address] [place] [address] PCP - General INTERNAL MEDICINE 12/09/20 03/25/23 documented as of this encounter
--- OUTSIDE RECORDS SUMMARY | 2024-06-07 07:47 | XMS_ITS | Encounter Summary ---
Author Organization [facility] Address [address] [place] [address]. [place] [address] [place] [address] Care Team Providers Care Metal Polisher Name Role Phone Cong Restrepo MD Primary Care Provider [phone] Reason for Visit * Reason Comments Lab (SCAN) Encounter Details Date Type Department Care Team (Latest Contact Info) Description 10/06/2022 Scan [facility] INFO SRVCS Scanned, Doc Med Group Lab (SCAN) Social History Tobacco Use Types Packs/Day Years [...] Procedure Name Priority Date/Time Associated Diagnosis Comments OUTSIDE LAB (SCAN ORDER) 10/06/2022 documented in this encounter Results * OUTSIDE LAB (SCAN) (10/06/2022) 10/06/2022 us Doc Med Group Scanned SCANNING Final Resu lt documented in this encounter Visit Diagnoses Not on filedocumented in this encounter Care Teams Metal Polisher Relationship Specialty Start Date End Date Cong Restrepo MD [address] [place] [address] PCP - General INTERNAL MEDICINE 12/09/20 03/25/23 documented as of this encounter
--- OUTSIDE RECORDS SUMMARY | 2024-06-07 07:47 | XMS_ITS | Encounter Summary ---
Author Organization [facility] Address [address] [place] [address]. [place], [place] [address] [place] [address] Care Team Providers Care Tacker Off Name Role Phone Cong Restrepo MD Primary Care Provider [phone] Encounter Details Date Type Department Care Team (Latest Contact Info) Description 10/13/2022 Travel Social History Tobacco Use Types Packs/Day [...] on filedocumented in this encounter Care Teams Tacker Off Relationship Specialty Start Date End Date Cong Restrepo MD [address] [place] [address] PCP - General INTERNAL MEDICINE 12/09/20 03/25/23 documented as of this encounter
--- OUTSIDE RECORDS SUMMARY | 2024-06-07 07:47 | XMS_ITS | Encounter Summary ---
Author Organization [facility] Address [address] [place] [address]. [place], [place] [address] [place] [address] Care Team Providers Care Police Commissioner Name Role Phone Angi Acvees NP Primary Care Provider [phone] Encounter Details Date Type Department Care Team (Latest Contact Info) Description 03/26/2023 Travel Social History Tobacco Use Types Packs/Day [...] on filedocumented in this encounter Care Teams Police Commissioner Relationship Specialty [place] [address] [facility] [address] [place] [address] PCP - General Nurse Practitioner Family 03/26/23 documented as of this encounter
--- OUTSIDE RECORDS SUMMARY | 2024-06-07 07:47 | XMS_ITS | Encounter Summary ---
Author Organization [facility] Address [address] [place] [address]. [place], [place] [address] [place] [address] Care Team Providers Care Clinical Research Physician Name Role Phone Angi Aceves NP Primary Care Provider [phone] Reason for Referral * Medication Prior Authorization - Authorized Specialty Diagnoses / Procedures Referred By Contdominga t Referred To Contact Diagnoses Nail fungus Jeannie Dawkins APRN [address] [facility] [address] [place] [address] Phone: tel: fax: Referral ID Status Reason Start Date Expiration Date V isits Requested Visits Authorized [id number] Authorized 03/26/2023 06/24/2023 1 1 Reason for Visit * Reason Comments Toe Pain Left great toe pain. Swollen and red. No drainage. Onset- this am. She lost her toenail over the summer months. Encounter Details Date Type Department Care Team (Late st Contact Info) Description 03/26/2023 1:00 PM CDT Office Visit [facility] Family & Internal Medicine - [place] [address] [place] [address] Jeannie Dawkins APRN [address] [facility] [address] [place] [address] Toe Pain (Left great toe pain. Swollen and red. No drainage. Onset- this am. She lost her toenail over the summer months.) Social History Tobacco Use Types Packs/Day Years Used Date Smoking Tobacco: Never Smokeless Tobacco: Never Tobacco Cessation:Counseling Given: No Alcohol Use Standard Drinks/Week Comments Not Currently 0 (1 standard drink = 0.6 oz pur e alcohol) PHQ-2 Answer Date Recorded Patient Health Questionnaire-2 Score 0 10/06/2022 Comments No Sex and Gender Information Value Date Recorded Sex Assigned at Not on file Legal Sex Female 4:36 PM CDT Gender Identity Not on file Sexual Orientation Not on file documented as of this encounter Last Filed Vital Signs Vital Sign Reading Time Taken Comments Blood Pressure 126/81 03/26/2023 12:59 PM CDT Pulse 61 03/26/2023 12:59 PM CDT Temperature 36.8 ??C (98.3 ??F) 03/26/2023 1 2:59 PM CDT Respiratory Rate 15 03/26/2023 12:5 9 PM CDT Oxygen Saturation 100% 03/26/2023 12: 59 PM CDT Inhaled Oxygen Concentration - - Weight 79.7 kg (175 lb 12.8 oz) 023 12:59 PM CDT Height 157.5 cm (5' 2 ) 03/26/2023 12:5 9 PM CDT Body Mass Index 32.15 03/26/2023 12:59 PM CDT documented in this encounter Patient Instructions * Patient Instructions* Jeannie Dawkins APRN - 03/26/2023 1:00 PM CDT Thank you for your visit today! A: 2 tablespoons of Epsom salt in 1 gallon of COOL tap water. Do not use HOT water! Hot water will cause more swelling and subsequently more pain. B: Add a small amount of Povidine Iodine 10% solution or Betadine to the water just enough to change the color of the water. (approximately 2 teaspoons). C: Soak 20-30 minutes and let air dry for 15 minutes. Do this twice daily When working use triple antibiotic ointment and wrap toe. Keep toe open to air as much as possible.Take Ibuprofen for pain/swelling. documented in this encounter Progress Notes * Jeannie Dawkins APRN - 03/26/2023 1:00 PM CDT Images from the original note were not included. Reason for Visit: Toe Pain (Left great toe pain. Swollen and red. No drainage. Onset- this am. She lost her toenail over the summer months.) History of Present Illness: Em Baez is a 37-year-old female who presents to the office with acute concern for left great toe pain and fungal growth. - lost her nail over the summer. Nail has slowly started to grow back however she notes that the nail has uneven texture and discoloration. ROS: Review of Systems Constitutional: Negative for activity change, appetite change, chills, fatigue, fever and night sweats. HENT: Negative for congestion and sinus pressure. Eyes: Negative for pain. Respiratory: Negative for cough, sputum production, chest tightness and shortness of breath. Cardiovascular: Negative for chest pain. Gastrointestinal: Negative for abdominal pain and bowel incontinence. Genitourinary: Negative for dysuria. Skin: Negative for rash. Left great toenail fungus Neurological: Negative for dizziness, headaches, imbalance, bowel incontinence and bladder incontinence. Medications: Current Outpatient Medications: terbinafine (LAMISIL) 250 MG tablet, Take 1 tablet (250 mg total) by mouth daily., Disp: 90 tablet,Rfl: 0 Review of patient's allergies indicates: Allergen Reactions Ceclor [Cefaclor] Hives Past Medical History: Diagnosis Date Asthma Past Surgical History: Procedure Laterality Date SECTION 4 D&E SECOND TRIMESTER 2017 DILATION/CURETTAGE,DIAGNOSTIC LAPAROSCOPY; TUBAL BLOCK TONSILLECTOMY TOTAL KNEE ARTHROPLASTY Left scoping/ torn meniscus Social History Socioeconomic History Marital status: Tobacco Use Smoking status: Never Smokeless tobacco: Never Vaping Use Vaping Use: Never used Substance and Sexual Activity Alcohol use: Not Currently Drug use: Not Currently Social History Narrative Lives at home with spouse and 4 kids E-Cigarettes Questions Responses E-Cigarette Use Never User No family history on file. Family Status Relation Name Status Mother Alive Father Alive Physical Exam Vitals reviewed. Constitutional: General: She is awake. She is not in acute distress. Appearance: Normal appearance. She is well-developed and well-groomed. She is not ill-appearing, toxic-appearing or diaphoretic. HENT: Right Ear: External ear normal. Left Ear: External ear normal. Nose: Nose normal. Mouth/Throat: Uvula is midline and mucous membranes are normal. Mucous membranes are moist. Eyes: General: Lids are normal. Right eye: No discharge. Left eye: No discharge. Conjunctiva/sclera: Conjunctivae normal. Cardiovascular: Rate and Rhythm: Normal rate and regular rhythm. Pulmonary: Effort: Pulmonary effort is normal. Breath sounds: Normal air entry. Feet: Skin: General: Skin is warm and dry. Neurological: Mental Status: She is alert and oriented to person, place, and time. Psychiatric: Attention and Perception: Attention normal. Mood and Affect: Mood and affect normal. Speech: Speech normal. Behavior: Behavior normal. Behavior is cooperative. Cognition and Memory: Cognition normal. Filed Vitals: 03/26/23 1259 BP: 126/81 Pulse: 61 Resp: 15 Temp: 98.3 ??F (36.8 ??C) TempSrc: Temporal SpO2: 100% Weight: 79.7 kg (175 lb 12.8 oz) Height: 5' 2 (1.575 m) Diagnoses/Impression: 1. Nail fungus terbinafine (LAMISIL) 250 MG tablet 2. High risk medication use COMPREHENSIVE METABOLIC PANEL Recommendations and Plan: 1. Nail fungus - reviewed nail fungus and treatment, added toenail soak instructions - A prescription was placed for Lamisil. The patient was counseled on appropriate use of medicationas well as about potential side effects. Patient verbalized understanding and agrees with treatmentplan. - terbinafine (LAMISIL) 250 MG tablet; Take 1 tablet (250 mg total) by mouth daily. Dispense: 90 tablet; Refill: 0 2. High risk medication use - COMPREHENSIVE METABOLIC PANEL; Future Orders Placed This Encounter COMPREHENSIVE METABOLIC PANEL terbinafine (LAMISIL) 250 MG tablet Return to clinic with new, persistent, or worsening symptoms. Em Baez is in agreement to and verbalized understanding of treatment plan with no further questions at this time. I personally spent a total of 22 minutes on the day of the encounter. This includes miaz-hy-cxxh and wrg-vpsb-ll-face time I provided on the day of the encounter & excludes time spent performing separately reportable services. Reviewed and updated this visit by provider: JEANNIE DAWKINS APRN Referring Provider: No ref. provider found PCP: Angi Aceves NP documented in this encounter Plan of Treatment Not on file documented as of this encounter Results * COMPREHENSIVE METABOLIC PANEL (03/26/2023 1:27 PM CDT) [facility] GLUCOSE 83 70 - 99 MG/DL 03/26/2023 5:53 PM CDT [facility] BUN 12 7 - 18 MG/DL 03/26/2023 5:53 PM CDT [facility] CREATININE S/P/B 0.74 0.55 - 1.02 MG/DL 03/26/2023 5:53 PM CDT [facility] SODIUM S/P/B 138 136 - 145 MMOL/L 03/26/2023 5:53 PM CDT [facility] POTASSIUM S/P/B 4.3 3.5 - 5.1 MMOL/L 03/26/2023 5:53 PM CDT [facility] CHLORIDE S/P/B 105 100 - 108 MMOL/L 03/26/2023 5:53 PM CDT [facility] CO2 24.6 21 - 32 MMOL/L 03/26/2023 5:53 PM CDT [facility] CALCIUM S/P/B 8.7 8.5 - 10.1 MG/DL 03/26/2023 5:53 PM CDT [facility] BILIRUBIN TOTAL S/P/B 0.6 0.2 - 1.2 MG/DL 03/26/2023 5:53 PM CDT [facility] TOTAL PROTEIN S/P/B 7.1 6.4 - 8.2 G/DL 03/26/2023 5:53 PM CDT [facility] ALBUMIN S/P/B 4.0 3.4 - 5.0 G/DL 03/26/2023 5:53 PM T [facility] AST 15 15 - 37 U/L 03/26/2023 5:53 PM T [facility] ALT 21 14 - 55 U/L 03/26/2023 5:53 PM T [facility] ALKALINE PHOSPHATASE S/P/B 60 50 - 136 U/L 03/26/2023 5:53 PM T [facility] ANION GAP 8.4 5 - 15 MMOL/L 03/26/2023 5:53 PM T [facility] BUN CREATININE RATIO 16.2 6 - 26 03/26/2023 5:53 PM T [facility] A/G RATIO 1.3 1.0 - 2.0 RATIO 03/26/2023 5:53 PM [facility] GFR ESTIMATE >90 >90 ML/MIN/1.7 3 M2 03/26/2023 5:53 PM T [facility] Comment: NOTE: eGFR is not calculated for patients <18 years of age. This is an estimated GFR calculation using the new CKD EPI creatinine equation without race and so does not require a correction factor for race. This estimated GFR should not be used for calculating drug doses. 03/26/2023 1:27 PM CDT us Jeannie Dawkins APRN LABORATORY Final Resu lt [facility] [address] [place] [address], [place] [phone] documented in this encounter Visit Diagnoses Diagnosis Nail fungus- Primary Dermatophytosis of nail High risk medication use Encounter for long-term (current) use of other medications documented in this encounter Care Teams Clinical Research Physician Relationship Specialty [place] [address] [address] PCP - General Nurse Practitioner Family 03/26/23 documented as of this encounter
--- OUTSIDE RECORDS SUMMARY | 2024-06-07 07:47 | XMS_ITS | Clinical Summary ---
Author Organization [facility] Address [address] [place] [address]. [place] [address] [place] [address] Care Team Providers Care Nut Grader Name Role Phone Angi Aceves NP Primary Care Provider [phone] Allergies Active Allergy Reactions Criticality Noted Date Comments Cefaclor Hives 08/11/2022 Medications terbinafine (LAMISIL) 250 MG tabletIndications:N ail fungus Take 1 tablet (250 mg total) by mouth daily. 90 tablet 3 Active neomycin-polymyxin- dexamethasone (MAXITROL) [id number] SuspensionIndicatio ns:Acute bacterial conjunctivitis of right eye Place 1 drop into the right eye every 3 (three) hours. 5 mL 4 Active Active Problems Problem Noted Date Diagnosed Date Obesity (BMI 30-39.9) 10/12/2022 Encounters Date Type Department Care Team Description 06/02/2024 Scan HEALTH INFO SRVCS Scanned, Doc [facility] Pathology (SCAN) from Last 3 Months Immunizations Name Administration Dates Next Due Flucelvax 6 Months+ (Prefilled Syringe) 05/07/20 17 MMR (MMRII) 10/13/2022 Family History Relation Status Comments Father Alive Mother Alive Social History Tobacco Use Types Packs/Day Years [...] on file Sexual Orientation Not on file Last Filed Vital Signs Vital Sign Reading [...] Mass Index 32.15 03/26/2023 12:59 PM CDT Plan of Treatment Health Maintenance Due Date Last Done Comments Cervical Cancer Screening Pa p Smear (Age 30 to 64) Every 3 Years 1984 Annual Physical 11/14/1987 DTaP, Tdap and Td Vaccines ( 1 - Tdap) 11/14/2003 Hepatitis B Vaccines (1 of 3 - 19+ 3-dose series) 11/14/2003 Cervical Cancer Screening Pa p with HPV Testing (Age 30 to 64) Every 5 Years 2014 Cervical Cancer Screening with HPV 2014 COVID-19 Vaccine (2023-2 5 season) 2024 Influenza Adult (#1) 2024 05/07/2017 Hepatitis C 10/06/2052 Postponed from 2002 (Patient Refused) HPV Vaccines Aged Out No longer eligi ble based on patient's age to complete this topic Meningococcal Vaccine Aged Out No osmin amauri eligible based on patient's age to complete this topic Pneumococcal Vaccine: Pediat rics (0 to 5 Years) and At-Risk Patients (6 to 64 Years) Aged Out No longer eligi ble based on patient's age to complete this topic RSV Immunizations Under 20 Months Aged Out No longer eligible based on patient's age to complete this topic Procedures Procedure Name Priority Date/Time Associated Diagnosis Comments PATHOLOGY GENERIC (SCAN ORDER) 06/02/2024 from Last 3 Months Results * PATHOLOGY GENERIC (SCAN ORDER) (06/02/2024) 06/02/2024 us Doc Med [facility] Scanned SCANNING Final Resu lt from Last 3 Months Insurance [facility] AET Care Teams Nut Grader Relationship Specialty [place] [address] [facility] [address]. [place] [address] PCP - General Nurse Practitioner Family 03/26/23
--- OUTSIDE RECORDS SUMMARY | 2024-06-07 07:47 | XMS_ITS | Encounter Summary ---
Author Organization [facility] Address [address] [place] [address]. [place], [place] [address] [place] [address] Care Team Providers Care Emulsification Operator Name Role Phone Angi Aceves NP Primary Care Provider [phone] Encounter Details Date Type Department Care Team (Late st Contact Info) Description 03/26/2023 1:40 PM CDT Laboratory Only [facility] Family & Internal Medicine [facility] [address] [place] [address] Jeannie Dawkins, COMPETITIVE ATHLETE [address] [facility] [address] [place] [address] Social History Tobacco Use Types Packs/Day Years [...] Procedure Name Priority Date/Time Associated Diagnosis Comments VENIPUNC ARM DRAW Routine 03/26/2023 1:28 PM CDT High risk medication use documented in this encounter Visit Diagnoses Diagnosis High risk medication use- Primary Encounter for long-term (current) use of other medications documented in this encounter Care Teams Emulsification Operator Relationship Specialty [place] [address] [facility] [address]. [place] [address] PCP - General Nurse Practitioner Family 03/26/23 documented as of this encounter
--- OUTSIDE RECORDS SUMMARY | 2024-06-07 07:47 | XMS_ITS | Encounter Summary ---
Author Organization [facility] Address [address] [place] [address]. [place] [address] [place] [address] Care Team Providers Care Supervisor Decorating Name Role Phone Angi Aceves NP Primary Care Provider [phone] Encounter Details Date Type Department Care Team ([facility] st Contact Info) Description 09/05/2023 [facility] [employer] HE[facility] INFORMATION MANAGEMENT [address] [place] [address] Víctor, [facility] Provider Proxy Access request for Martin Social History Tobacco Use Types Packs/Day Years [...] on filedocumented in this encounter Care Teams Supervisor Decorating Relationship Specialty [place] [address] [facility] [address]. [place] [address] PCP - General Nurse Practitioner Family 03/26/23 documented as of this encounter
--- OUTSIDE RECORDS SUMMARY | 2024-06-07 07:47 | XMS_ITS | Encounter Summary ---
Author Organization [facility] Address [address] [place] [address]. [place], [place] [address] [place] [address] Care Team Providers Care Wireless Operator Name Role Phone Angi Aceves NP Primary Care Provider [phone] Encounter Details Date Type Department Care Team (Latest Contact Info) Description 03/26/2023 5:00 PM CDT - 03/26/2023 11:59 PM CDT Hospital Encounter [facility] [address] [place] [address] Jeannie Dawkins APRN [address] [facility] [address] [place], [place] [id number] Discharge Disposition: Home or Self Care (Routine [...] on file documented as of this encounter Medications at Time of Discharge terbinafine (LAMISIL) 250 MG tabletIndications :Nail fungus Take 1 tablet (250 mg total) by mouth daily. 90 tablet 03/26/2023 documented as of this encounter Progress Notes * Jeannie Dawkins APRN - 03/26/2023 5:00 PM CDT All labs normal. Kidney and liver function stable. documented in this encounter Plan of Treatment Not on file documented as of this encounter Procedures Procedure Name Priority Date/Time Associated Diagnosis Comments COMPREHENSIVE METABOLIC PANEL Routine 03/26/2023 1:27 PM CDT High risk medication use documented in this encounter Results * COMPREHENSIVE METABOLIC PANEL (03/26/2023 1:27 PM CDT) GLUCOSE 83 70 - 99 MG/DL 03/26/2023 5:53 PM CDT [facility] BUN 12 7 - 18 MG/DL 03/26/2023 5:53 PM CDT [facility] CREATININE S/P/B 0.74 0.55 - 1.02 MG/DL 03/26/2023 5:53 PM CDT [facility] SODIUM S/P/B 138 136 - 145 MMOL/L 03/26/2023 5:53 PM CDT [facility] POTASSIUM S/P/B 4.3 3.5 - 5.1 MMOL/L 03/26/2023 5:53 PM CDT [facility] CHLORIDE S/P/B 105 100 - 108 MMOL/L 03/26/2023 5:53 PM CDT [facility] CO2 24.6 21 - 32 MMOL/L 03/26/2023 5:53 PM CDT [facility] CALCIUM S/P/B 8.7 8.5 - 10.1 MG/DL 03/26/2023 5:53 PM CDT [facility] BILIRUBIN TOTAL S/P/B 0.6 0.2 - 1.2 MG/DL 03/26/2023 5:53 PM CDT [facility] TOTAL PROTEIN S/P/B 7.1 6.4 - 8.2 G/DL 03/26/2023 5:53 PM CDT [facility] ALBUMIN S/P/B 4.0 3.4 - 5.0 G/DL 03/26/2023 5:53 PM CDT [facility] AST 15 15 - 37 U/L 03/26/2023 5:53 PM CDT [facility] ALT 21 14 - 55 U/L 03/26/2023 5:53 PM CDT [facility] ALKALINE PHOSPHATASE S/P/B 60 50 - 136 U/L 03/26/2023 5:53 PM CDT [facility] ANION GAP 8.4 5 - 15 MMOL/L 03/26/2023 5:53 PM CDT [facility] BUN CREATININE RATIO 16.2 6 - 26 03/26/2023 5:53 PM CDT [facility] A/G RATIO 1.3 1.0 - 2.0 RATIO 03/26/2023 5:53 PM CDT [facility] GFR ESTIMATE >90 >90 ML/MIN/1.7 3 M2 03/26/2023 5:53 PM CDT [facility] Comment: NOTE: eGFR is not calculated for patients <18 years of age. This is an estimated GFR calculation using the new CKD EPI creatinine equation without race and so does not require a correction factor for race. This estimated GFR should not be used for calculating drug doses. 03/26/2023 1:27 PM CDT us Jeannie Dawkins APRN LABORATORY Final Resu lt [facility] [address] [place] [address], [place] [phone] documented in this encounter Visit Diagnoses Diagnosis High risk medication use Encounter for long-term (current) use of other medications documented in this encounter Care Teams Wireless Operator Relationship Specialty Start Date End Date Angi Aceves, SUSIE [address] [place] [address] PCP - General Nurse Practitioner Family 03/26/23 documented as of this encounter
--- OUTSIDE RECORDS SUMMARY | 2024-06-07 07:48 | XMS_ITS | Encounter Summary ---
Author Organization [facility] Address [address] [place] [address]. [place] [address] [place] [address] Care Team Providers Care Recruiting Assistant Name Role Phone Cong Restrepo MD Primary Care Provider [phone] Encounter Details Date Type Department Care Team (Late st Contact Info) Description 01/19/1998 Abstract [facility] Diagnostic Imaging [address] [place] [address] Augie Jeong MD [address] [place] [address] Social History Tobacco Use Types Packs/Day Years Used Date Smoking Tobacco: Never Assessed Comments Unknown Sex and Gender Information Value Date Recorded Sex Assigned at Not on file Legal Sex Female 4:36 PM CDT Gender Identity Not on file Sexual Orientation Not on file COVID-19 Exposure Response Date Recorded In the last month, have you been in contact with someone who was confirmed or suspected to have Coronavirus / COVID-19? No / Unsure 01/20/2021 7:40 AM CDT documented as of this encounter Plan of Treatment Not on file documented as of this encounter Visit Diagnoses Not on filedocumented in this encounter Care Teams Recruiting Assistant Relationship Specialty Start Date End Date Cong Restrepo MD [address] [place] [address] PCP - General INTERNAL MEDICINE 12/09/20 03/25/23 documented as of this encounter
--- OUTSIDE RECORDS SUMMARY | 2024-06-07 07:48 | XMS_ITS | Encounter Summary ---
Author Organization [facility] Address [address] [place] [address]. [place] [address] [place] [address] Care Team Providers Care House Worker Name Role Phone Cong Restrepo MD Primary Care Provider [phone] Encounter Details Date Type Department Care Team (Late st Contact Info) Description 01/31/2001 Abstract [facility] Therapy [address] [place] [address] Marlen Stoddard, DO [address] [place] [address] Social History Tobacco Use Types Packs/Day Years [...] on filedocumented in this encounter Care Teams House Worker Relationship Specialty Start Date End Date Cong Restrepo MD [facility] [place] [address] PCP - General INTERNAL MEDICINE 12/09/20 03/25/23 documented as of this encounter
--- OUTSIDE RECORDS SUMMARY | 2024-06-07 07:48 | XMS_ITS | Encounter Summary ---
Author Organization [facility] Address [address] [place] [address]. [place] [address] [place] [address] Care Team Providers Care Classroom Assistant Name Role Phone Cong Restrepo MD Primary Care Provider [phone] Encounter Details Date Type Department Care Team (Latest Contact Info) Description 01/12/2021 12:05 PM CDT - 01/12/2021 11:59 PM CDT Hospital Encounter [facility] [address] [place] [address] Pauly Grace PA [address] [place], [place] [id number] Discharge Disposition: Home or Self Care (Routine [...] have Coronavirus / COVID-19? No / Unsure 01/12/2021 12:04 PM CDT documented as of this encounter Plan of Treatment Not on file documented as of this encounter Procedures Procedure Name Priority Date/Time Associated Diagnosis Comments XR FOOT LT 3V Routine 01/12/2021 12:23 PM CDT Left foot pain XR ANKLE LT M3V Routine 01/12/2021 12:23 PM CDT Left ankle pain documented in this encounter Results * XR ANKLE LT M3V (01/12/2021 12:23 PM CDT) Anatomical Region Laterality Modality Ankle Radiographic Chantal ging 01/12/2021 2:06 PM CDT Impressions 01/12/2021 2:07 PM CDT FINDINGS AND IMPRESSION: 1. ??The talar dome is intact. The base of the 5th metatarsal is unremarkable. 2. ??No fracture lines are identified. No dislocation. 3. ??No radiopaque foreign bodies or abnormal soft tissue calcifications. No destructive or lytic lesions. 4. ??Tiny calcaneal enthesophytes. 5. ??Decreased conspicuity of underlying ankle joint effusion. Referred By: PAULY GRACE Interpreted By: Anibal Berg, 01/12/2021 2:06 PM Narrative 01/12/2021 2:07 PM CDT IMAGING STUDIES: ??XR ANKLE LT M3V ? DATE: ??01/12/2021 12:11 PM CLINICAL HISTORY: ??Left ankle pain not improving with conservative therapy. . COMPARISON STUDIES: 12/09/2020. ?? Procedure Note Anibal Berg MD - 01/12/2021 IMAGING STUDIES: XR ANKLE LT M3V DATE: 01/12/2021 12:11 PM CLINICAL HISTORY: Left ankle pain not improving with conservativetherapy. . COMPARISON STUDIES: 12/09/2020. FINDINGS AND IMPRESSION: 1. The talar dome is intact. The base of the 5th metatarsal isunremarkable. 2. No fracture lines are identified. No dislocation. 3. No radiopaque foreign bodies or abnormal soft tissue calcifications.No destructive or lytic lesions. 4. Tiny calcaneal enthesophytes. 5. Decreased conspicuity of underlying ankle joint effusion. Referred By: PAULY GRACE Interpreted By: Anibal Berg, 01/12/2021 2:06 PM us [facility] Final Result * XR FOOT LT 3V (01/12/2021 12:23 PM CDT) Anatomical Region Laterality Modality Foot Radiographic Chantal ging 01/12/2021 2:05 PM CDT Impressions 01/12/2021 2:06 PM CDT FINDINGS AND IMPRESSION: 1. ??No definitive evidence of acute fracture or dislocation. No destructive or lytic lesions. No radiopaque foreign bodies or abnormal soft tissue calcifications noted. 2. ??Minimal calcaneal enthesophytes Referred By: PAULY GRACE Interpreted By: Anibal Berg, 01/12/2021 2:05 PM Narrative 01/12/2021 2:06 PM CDT IMAGING STUDIES: ??XR FOOT LT 3V ? DATE: ??01/12/2021 12:11 PM CLINICAL HISTORY: ??Left foot pain not improving with conservative therapy.. . COMPARISON STUDIES: No previous available. ?? Procedure Note Anibal Berg MD - 01/12/2021 IMAGING STUDIES: XR FOOT LT 3V DATE: 01/12/2021 12:11 PM CLINICAL HISTORY: Left foot pain not improving with conservativetherapy.. . COMPARISON STUDIES: No previous available. FINDINGS AND IMPRESSION: 1. No definitive evidence of acute fracture or dislocation. Nodestructive or lytic lesions. No radiopaque foreign bodies or abnormalsoft tissue calcifications noted. 2. Minimal calcaneal enthesophytes Referred By: PAULY GRACE Interpreted By: Anibal Berg, 01/12/2021 2:05 PM [facility] Final Result documented in this encounter Visit Diagnoses Diagnosis Left foot pain Pain in limb Left ankle pain Pain in joint, ankle and foot documented in this encounter Care Teams Classroom Assistant Relationship Specialty Start Date End Date Cong Restrepo MD [address] [place] [id number] PCP - General INTERNAL MEDICINE 12/09/20 03/25/23 documented as of this encounter
--- OUTSIDE RECORDS SUMMARY | 2024-06-07 07:48 | XMS_ITS | Encounter Summary ---
Author Organization [facility] Address [address] [place] [address]. [place] [address] [place] [address] Care Team Providers Care Penology Professor Name Role Phone Cong Restrepo MD Primary Care Provider [phone] Encounter Details Date Type Department Care Team (Late st Contact Info) Description 01/21/1998 Abstract [facility] [address] [place], [place] [id number] , Generic Conversion, Social History Tobacco Use Types Packs/Day Years [...] on filedocumented in this encounter Care Teams Penology Professor Relationship Specialty Start Date End Date Cong Restrepo MD [address] [place] [phone] PCP - General INTERNAL MEDICINE 12/09/20 03/25/23 documented as of this encounter
--- OUTSIDE RECORDS SUMMARY | 2024-06-07 07:48 | XMS_ITS | Encounter Summary ---
Author Organization [facility] Address [address] [place] [address]. [place] [address] [place] [address] Care Team Providers Care Hydrometallurgical Engineer Name Role Phone Cong Restrepo MD Primary Care Provider [phone] Encounter Details Date Type Department Care Team (Late st Contact Info) Description 05/24/1999 Abstract [facility] Diagnostic Imaging [address] [place] [address] Augie Jeong MD [address] [place] [address] Social History Tobacco Use Types Packs/Day Years [...] on filedocumented in this encounter Care Teams Hydrometallurgical Engineer Relationship Specialty Start Date End Date Cong Restrepo MD [address] [place] [address] PCP - General INTERNAL MEDICINE 12/09/20 03/25/23 documented as of this encounter
--- OUTSIDE RECORDS SUMMARY | 2024-06-07 07:48 | XMS_ITS | Encounter Summary ---
Author Organization [facility] Address [address] [place] [address]. [place], [place] [id number] [place] [address] Care Team Providers Care Sql Database Administrator Name Role Phone Cong Restrepo MD Primary Care Provider [phone] Encounter Details Date Type Department Care Team (Latest Contact Info) Description 04/10/2019 Scan HEALTH INFO [facility] Scanned, Doc Med Group Social History Tobacco Use Types Packs/Day Years Used Date Smoking Tobacco: Never Assessed PHQ-2 Answer Date Recorded Patient Health Questionnaire-2 Score 0 10/06/2022 Comments Unknown Sex and Gender Information Value [...] on filedocumented in this encounter Care Teams Sql Database Administrator Relationship Specialty Start Date End Date Cong Restrepo MD [address] [place] [phone] PCP - General INTERNAL MEDICINE 12/09/20 03/25/23 documented as of this encounter
--- OUTSIDE RECORDS SUMMARY | 2024-06-07 07:48 | XMS_ITS | Encounter Summary ---
Author Organization [facility] Address [address] [place] [address]. [place] [address] [place] [address] Care Team Providers Care Animal Shelter Manager Name Role Phone Unavailable Primary Care Provider Unavailabl e Encounter Details Date Type Department Care Team (Late st Contact Info) Description 04/20/2017 Abstract [facility] [address] [place] [address] Parish Thompson MD [facility] [address] [facility] [address] [place] [address] Social History Tobacco Use Types Packs/Day Years Used Date Smoking Tobacco: Never Assessed Comments Unknown Sex and Gender Information Value Date Recorded Sex Assigned at Not on file Legal Sex Female 4:36 PM CDT Gender Identity Not on file Sexual Orientation Not on file documented as of this encounter Plan of Treatment Not on file documented as of this encounter Visit Diagnoses Diagnosis Irregular menstruation Irregular menstrual cycle documented in this encounter
--- OUTSIDE RECORDS SUMMARY | 2024-06-07 07:48 | XMS_ITS | Encounter Summary ---
Author Organization [facility] Address [address] [place] [address]. [place] [address] [place] [address] Care Team Providers Care Early Childhood Teacher Assistant Name Role Phone Cong Mendez MD Primary Care Provider [phone] Reason for Visit * Reason Comments Skin Symptoms Pt thinks has shingl es on right side of back Encounter Details Date Type Department Care Team (Late st Contact Info) Description 08/11/2022 3:40 PM DOCKET CLERK Office Visit [facility] Family & Internal Medicine [facility] [id number] [place] [phone] Jeannie Dawkins, TRUCK DRIVER [employer] [address] [facility] [address] [place] [address] Skin Symptoms (Pt thinks has shingles on right side of back) Social History Tobacco Use Types Packs/Day Years Used Date Smoking Tobacco: Never Smokeless Tobacco: Never Tobacco Cessation:Counseling Given: No Alcohol Use Standard Drinks/Week Comments Not Currently 0 (1 standard drink = 0.6 oz pur e alcohol) PHQ-2 Answer Date Recorded Patient Health Questionnaire-2 Score 0 08/11/2022 Comments No Sex and Gender Information Value Date Recorded Sex Assigned at Not on file Legal Sex Female 4:36 PM CDT Gender Identity Not on file Sexual Orientation Not on file COVID-19 Exposure Response Date Recorded In the last 10 days, have yo u been in contact with someone who was confirmed or suspected to have Coronavirus/COVID-19? No / Unsure 08/11/2022 3:21 PM DOCKET CLERK documented as of this encounter Last Filed Vital Signs Vital Sign Reading Time Taken Comments Blood Pressure 112/69 08/11/2022 3:48 PM DOCKET CLERK Pulse 71 08/11/2022 3:48 PM DOCKET CLERK Temperature 37.8 ??C (100 ??F) 08/11/2022 3:48 PM DOCKET CLERK Respiratory Rate 16 08/11/2022 3:48 PM DOCKET CLERK Oxygen Saturation 99% 08/11/2022 3:48 PM DOCKET CLERK Inhaled Oxygen Concentration - - Weight 90.9 kg (200 lb 6.4 oz) 08/11/2022 3:48 P M DOCKET CLERK Height 157.5 cm (5' 2 ) 08/11/2022 3:48 PM DOCKET CLERK Body Mass Index 36.65 08/11/2022 3:48 PM DOCKET CLERK documented in this encounter Patient Instructions * Patient Instructions* Jeannie Dawkins APRN - 08/11/2022 3:40 PM DOCKET CLERK Thank you for your visit today! Discussed preference of scent free and dye free skin contact products. Discussed appropriate use ofemollients and preferred brands. Discussed no bubble baths, luke warm water, 10 minute limit, pat dry skin, and apply moisturizer within 3 minutes of coming out of bath. Discussed appropriate laundrycare including scent free detergent, dryer sheets, and fabric softeners. Discussed appropriate use of topical steroid products and application of steroid products prior to emollient. ET CLERK ET CLERK * Attachments The following attachments cannot be sent through Care Everywhere. * Shingles (Niuean) * Shingles Discharge Instructions (Niuean) documented in this encounter Progress Notes * Jeannie Dawkins APRN - 08/11/2022 3:40 PM CST Reason for Visit: Skin Symptoms (Pt thinks has shingles on right side of back) History of Present Illness: Em Baez is a 36-year-old female who presents to the office with acute concern for rash onher back. Right side of back clustered rash- pain/tingling present - pain wrapping around right side ROS: Review of Systems Constitutional: Positive for fatigue and fever. Skin: Positive for rash. All other systems reviewed and are negative. Medications: Current Outpatient Medications: ??? acyclovir (ZOVIRAX) 800 MG tablet, Take 1 tablet (800 mg total) by mouth 5 (five) times daily for 7 days., Disp: 35 tablet, Rfl: 0 ??? predniSONE (DELTASONE) 20 MG tablet, TAKE 2 TABLETS BY MOUTH DAILY FOR 5 DAYS, Disp: , Rfl: ??? cyclobenzaprine (FLEXERIL) 10 MG tablet, TAKE 1 TABLET BY MOUTH EVERY 8 HOURS NEEDED FOR MUSCLE SPASM FOR 7 DAYS (Patient not taking: Reported on 08/11/2022), Disp: , Rfl: Allergies Allergen Reactions ??? Ceclor [Cefaclor] Hives History reviewed. No pertinent past medical history. History reviewed. No pertinent surgical history. Social History Socioeconomic History ??? Marital status: Tobacco Use ??? Smoking status: Never ??? Smokeless tobacco: Never Vaping Use ??? Vaping Use: Never used Substance and Sexual Activity ??? Alcohol use: Not Currently ??? Drug use: Not Currently E-Cigarettes Questions Responses E-Cigarette Use Never User No family history on file. No family status information on file. Physical Exam Vitals reviewed. Constitutional: General: She is awake. She is not in acute distress. Appearance: Normal appearance. She is well-developed and well-groomed. She is not ill-appearing, toxic-appearing or diaphoretic. HENT: Head: Normocephalic and atraumatic. Right Ear: Tympanic membrane, external ear and ear canal normal. Patient has no impacted cerumen right. Left Ear: Tympanic membrane, external ear and ear canal normal. Patient has no impacted cerumen left. Nose: Nose normal. Mouth/Throat: Uvula is midline and mucous membranes are normal. Mucous membranes are moist. Eyes: General: Lids are normal. Right eye: No discharge. Left eye: No discharge. Conjunctiva/sclera: Conjunctivae normal. Cardiovascular: Rate and Rhythm: Normal rate and regular rhythm. Pulses: Normal pulses. Heart sounds: Normal heart sounds, S1 normal and S2 normal. No murmur heard. Pulmonary: Effort: Pulmonary effort is normal. No respiratory distress. Breath sounds: Normal breath sounds and air entry. No stridor. No wheezing. Musculoskeletal: General: Normal range of motion. Cervical back: Full passive range of motion without pain and normal range of motion. Skin: General: Skin is warm and dry. Capillary Refill: Capillary refill takes less than 2 seconds. Findings: Rash present. Neurological: General: No focal deficit present. Mental Status: She is alert and oriented to person, place, and time. Motor: Motor function is intact. Coordination: Coordination is intact. Gait: Gait is intact. Psychiatric: Attention and Perception: Attention and perception normal. Mood and Affect: Mood and affect normal. Speech: Speech normal. Behavior: Behavior normal. Behavior is cooperative. Thought Content: Thought content normal. Cognition and Memory: Cognition normal. Judgment: Judgment normal. Filed Vitals: 08/11/22 1548 BP: 112/69 Pulse: 71 Resp: 16 Temp: 100 ??F (37.8 ??C) TempSrc: Temporal SpO2: 99% Weight: 90.9 kg (200 lb 6.4 oz) Height: 5' 2 (1.575 m) Diagnoses/Impression: 1. Herpes zoster without complication acyclovir (ZOVIRAX) 800 MG tablet Recommendations and Plan: 1. Herpes zoster without complication -Advised patient to avoid scratching/picking at rash -Encouraged patient to rotate Tylenol and Advil for fever and pain relief. -Patient is to follow-up if rash is worsening - acyclovir (ZOVIRAX) 800 MG tablet; Take 1 tablet (800 mg total) by mouth 5 (five) times daily for7 days. Dispense: 35 tablet; Refill: 0 Orders Placed This Encounter ??? cyclobenzaprine (FLEXERIL) 10 MG tablet ??? predniSONE (DELTASONE) 20 MG tablet ??? acyclovir (ZOVIRAX) 800 MG tablet Return to clinic with new, persistent, or worsening symptoms. Em Baez is in agreement to and verbalized understanding of treatment plan with no further questions at this time. Reviewed and updated this visit by provider: JEANNIE DAWKINS APRN Referring Provider: No ref. provider found PCP: CONG MENDEZ MD ET CLERK documented in this encounter Plan of Treatment Not on file documented as of this encounter Visit Diagnoses Diagnosis Herpes zoster without complication- Primary Herpes zoster without mention of complication documented in this encounter Care Teams Early Childhood Teacher Assistant Relationship Specialty Start Date End Date Cong Mendez MD [address] [place] [phone] PCP - General INTERNAL MEDICINE 12/09/20 03/25/23 documented as of this encounter
--- OUTSIDE RECORDS SUMMARY | 2024-06-07 07:48 | XMS_ITS | Encounter Summary ---
Author Organization [facility] Address [address] [place] [address]. [place] [address] [place] [address] Care Team Providers Care Certified Recreational Therapist Name Role Phone Cong Restrepo MD Primary Care Provider [phone] Encounter Details Date Type Department Care Team (Late st Contact Info) Description 03/24/1999 Abstract [facility] [address] [place] [address] Marlen Stoddard DO [address] [place] [address] Social History Tobacco Use Types Packs/Day Years [...] on filedocumented in this encounter Care Teams Certified Recreational Therapist Relationship Specialty Start Date End Date Cong Restrepo MD [facility] [place] [address] PCP - General INTERNAL MEDICINE 12/09/20 03/25/23 documented as of this encounter
--- OUTSIDE RECORDS SUMMARY | 2024-06-07 07:48 | XMS_ITS | Encounter Summary ---
Author Organization [facility] Address [address] [place] [address]. [place] [address] [place] [address] Care Team Providers Care Time Study Statistician Name Role Phone Cong Restrepo MD Primary Care Provider [phone] Encounter Details Date Type Department Care Team (Late st Contact Info) Description 06/08/2001 Abstract [facility] Emergency Services [address] [place] [address] , Jason Goodson MD Social History Tobacco Use Types Packs/Day Years [...] on filedocumented in this encounter Care Teams Time Study Statistician Relationship Specialty Start Date End Date Cong Restrepo MD [address] [place] [address] PCP - General INTERNAL MEDICINE 12/09/20 03/25/23 documented as of this encounter
--- OUTSIDE RECORDS SUMMARY | 2024-06-07 07:48 | XMS_ITS | Encounter Summary ---
Author Organization [facility] Address [address] [place] [address]. [place], [place] [address] [place] [address] Care Team Providers Care Electric Meter Repairer Apprentice Name Role Phone Cong Restrepo MD Primary Care Provider [phone] Reason for Visit * Reason Comments Physical Physical for Daycare Encounter Details Date Type Department Care Team (Late st Contact Info) Description 10/06/2022 11:20 AM CDT Office Visit [facility] Family & Internal Medicine [facility] [id number] [place] [phone] [place] [address] [facility] [address]. [place] [address] Physical (Physical for Daycare ) Social History Tobacco Use Types Packs/Day Years [...] AM CDT documented as of this encounter Last Filed Vital Signs Vital Sign Reading Time Taken Comments Blood Pressure 133/83 10/06/2022 11:15 AM CDT Pulse 52 10/06/2022 11:15 AM CDT Temperature 36.7 ??C (98.1 ??F) 10/06/2022 11:15 AM C DT Respiratory Rate 16 10/06/2022 11:15 AM CDT Oxygen Saturation 100% 10/06/2022 11:15 AM CDT Inhaled Oxygen Concentration - - Weight 87.1 kg (192 lb) 10/06/2022 11:15 AM CDT Height 157.5 cm (5' 2 ) 10/06/2022 11:15 AM CDT Body Mass Index 35.12 10/06/2022 11:15 AM CDT documented in this encounter Progress Notes * Angi Aceves NP - 10/06/2022 11:20 AM CDT Reason for Visit: Physical (Physical for Daycare ) History of Present Illness: Em a 36-year-old female presents for employment physical with [employer]. She denies cough or acute symptoms. She is needing TB screening, and MMR immunity verification today. ROS: Review of Systems Constitutional: Negative. Respiratory: Negative. Cardiovascular: Negative. Musculoskeletal: Negative. Neurological: Negative. Psychiatric/Behavioral: Negative. PHQ-9: 10/06/2022 11:23 AM 08/11/2022 3:53 PM PHQ2/PHQ 9 DEPRESSION SCREEN QUESTIONAIRE Little interest or pleasure in doing things Not at all Not at all Feeling down, depressed, or hopeless Not at all Not at all Patient Health Questionnaire-2 Score 0 0 Medications: No current outpatient medications on file. Review of patient's allergies indicates: Allergen Reactions Ceclor [Cefaclor] Hives History reviewed. No pertinent past medical history. Past Surgical History: Procedure Laterality Date SECTION 4 D&E SECOND TRIMESTER 2017 DILATION/CURETTAGE,DIAGNOSTIC LAPAROSCOPY; TUBAL BLOCK TONSILLECTOMY Social History Tobacco Use Smoking status: Never Smokeless tobacco: Never Vaping Use Vaping Use: Never used Substance Use Topics Alcohol use: Not Currently Drug use: Not Currently No family history on file. Family Status [...] Conjunctiva/sclera: Conjunctivae normal. Cardiovascular: Rate and Rhythm: Regular rhythm. Bradycardia present. Pulses: Normal pulses. Heart sounds: Normal heart [...] Capillary refill takes less than 2 seconds. Neurological: General: No focal deficit present. Mental [...] Cognition normal. Judgment: Judgment normal. Filed Vitals: 10/06/22 1115 BP: 133/83 Pulse: (!) 52 Resp: 16 Temp: 98.1 ??F (36.7 ??C) TempSrc: Core SpO2: 100% Weight: 87.1 kg (192 lb) Height: 5' 2 (1.575 m) Assessment Encounter Diagnose(s) ICD-10-CM ICD-9-CM SNOMED CT(R) 1. Encounter for physical examination related to employment Z02.89 V70.5 PATIENT ENCOUNTER STATUS 2. Immunity status testing Z01.84 V72.61 PATIENT ENCOUNTER STATUS MUMPS AB IGG RUBEOLA IGG RUBELLA IGG VENIPUNC ARM DRAW 3. Screening-pulmonary TB Z11.1 V74.1 TUBERCULOSIS SCREENING STATUS TB INTRADERMAL TEST (BACK OFFICE) 4. Obesity (BMI 30-39.9) E66.9 278.00 BODY MASS INDEX 30+ - OBESITY 5. Depression screening Z13.31 V79.0 PATIENT ENCOUNTER STATUS Recommendations and Plan: 1. Encounter for physical examination related to employment 2. Immunity status testing Labs for screening - MUMPS AB IGG; Future - RUBEOLA IGG; Future - RUBELLA IGG; Future - VENIPUNC ARM DRAW 3. Screening-pulmonary TB Screening needed Patient to return Sunday for reading - TB INTRADERMAL TEST (BACK OFFICE) 4. Obesity (BMI 30-39.9) Recommend an increase of fruits, vegetables, and whole grains. Reduce saturated fat intake. Recommend 90-150 minutes of aerobic exercises and/or 3 sessions of isometric resistance exercises per week for weight loss. Monitor caloric intake. You should drink at least 1/2 gallon of water daily. 5. Depression screening Screening completed, negative Follow up in 2 months. Return to clinic with new, persistent, or worsening symptoms. Em Baez is in agreement to and verbalized understanding of treatment plan with no further questions at this time. Angi Aceves NP 10/12/2022 10:16 PM documented in this encounter Plan of Treatment Not on file documented as of this encounter Procedures Procedure Name Priority Date/Time Associated Diagnosis Comments TB INTRADERMAL TEST (BACK OFFICE) Routine 10/06/2022 11:58 AM CDT Screening-pulmonary TB VENIPUNC ARM DRAW Routine 10/06/2022 11: 47 AM CDT Immunity status testing documented in this encounter Results * TB INTRADERMAL TEST (BACK OFFICE) (10/06/2022 11:58 AM CDT) MM INDURATION 0 PPD SKIN TEST neg NOT REQUIRED 10/06/2022 11:5 8 AM CDT us Angi Aceves NP MICROBIOLOGY - GENERAL ORDER CRISTOFER Final Result * RUBELLA IGG (10/06/2022 11:49 AM CDT) RUBELLA IGG AB 22.10 10/06/2022 7:51 PM CDT [facility] Comment: IMMUNITY PRESENT RUBELLA IGG ANTIBODY [...] RUBELLA VIRUS. 10/06/2022 11:4 9 AM CDT Angi Aceves NP LABORATORY Final Result [facility] [address] [place] [address], * RUBEOLA IGG (10/06/2022 11:49 AM CDT) RUBEOLA IGG 16.60 AU/mL 10/12/2022 11:12 AM CDT [facility] [employer] [facility] Comment: ?AU/mL ? Interpretation ?<13.50 ?Not consistent with immunity 13.50 - 16.49 ?Equivocal ?>16.49 ?Consistent with immunity The presence of measles IgG suggests immunization or past or current infection with measles virus. For additional information, please refer to http://LightningBuy.Mocha.cn/faq/TLQ150 (This link is being provided for informational/ educational purposes only.) Test Performed by [employer], [address] [place], [place] Gerhard Mccormick M.D., Ph.D., Director of Laboratories , CLIA [id number] 10/06/2022 11:4 9 AM CDT Angi Aceves NP LABORATORY Final Result Performing Organization Address [facility] Co de Phone Number [facility] [address] [place], [place] , * (ABNORMAL) MUMPS AB IGG (10/06/2022 11:49 AM CDT) Pathologist [facility] MUMPS IGG EIA <9.00(L) AU/mL 10/11/2022 11:11 AM CDT [facility] [employer] [place] Comment: ?? AU/mL ? Interpretation ? < 9.00 ?Not consistent with immunity 9.00 - 10.99 ?? Equivocal ??> 10.99 ?Consistent with immunity The presence of mumps IgG antibody suggests immunization or past or current infection with mumps virus. Test Performed by [employer], [address] [place], [place] Gerhard Mccormick M.D., Ph.D., Director of Laboratories , CLIA [id number] 10/06/2022 11:4 9 AM CDT Angi Aceves NP LABORATORY Final Result Performing Organization Address [facility]/ZIP Co de Phone Number [facility] [address] [place] [address], [place] [phone] documented in this encounter Visit Diagnoses Diagnosis Encounter for physical examination related to employment- Primary Immunity status testing Antibody response examination Screening-pulmonary TB Screening examination for pulmonary tuberculosis Obesity (BMI 30-39.9) Obesity, unspecified Depression screening Screening for depression documented in this encounter Administered Medications Administered Medications Medication Order MAR Action Action Date Dose Rate Site Protein Derivative (Purified) Intradermal Given 10/06/2022 11:58 CDT 0.1 mL RIGHT FO REARM documented in this encounter Care Teams Electric Meter Repairer Apprentice Relationship Specialty Start Date End Date Cong Restrepo MD [address] [place] [address] PCP - General INTERNAL MEDICINE 12/09/20 03/25/23 documented as of this encounter
--- OUTSIDE RECORDS SUMMARY | 2024-06-07 07:48 | XMS_ITS | Encounter Summary ---
Author Organization [facility] Address [address] [place] [address]. [place], [place] [address] [place] [address] Care Team Providers Care International Accounting Manager Name Role Phone Cong Restrepo MD Primary Care Provider [phone] Encounter Details Date Type Department Care Team (Latest Contact Info) Description 01/12/2021 Travel Social History Tobacco Use Types Packs/Day [...] on filedocumented in this encounter Care Teams International Accounting Manager Relationship Specialty Start Date End Date Cong Restrepo MD [address] [place] [address] PCP - General INTERNAL MEDICINE 12/09/20 03/25/23 documented as of this encounter
--- OUTSIDE RECORDS SUMMARY | 2024-06-07 07:48 | XMS_ITS | Encounter Summary ---
Author Organization [facility] Address [address] [place] [address]. [place] [address] [place] [address] Care Team Providers Care Sharepoint Engineer Name Role Phone Cong Restrepo MD Primary Care Provider [phone] Encounter Details Date Type Department Care Team (Late st Contact Info) Description 11/07/1999 Abstract [facility] [address] [place] [address] Marlen Stoddard, DO [address] [place] [address] Social History Tobacco Use Types Packs/Day Years [...] on filedocumented in this encounter Care Teams Sharepoint Engineer Relationship Specialty Start Date End Date Cong Restrepo MD [address] [place] [address] PCP - General INTERNAL MEDICINE 12/09/20 03/25/23 documented as of this encounter
--- OUTSIDE RECORDS SUMMARY | 2024-06-07 07:48 | XMS_ITS | Encounter Summary ---
Author Organization [facility] Address [address] [place] [address]. [place] [address] [place] [address] Care Team Providers Care Green Tire Inspector Name Role Phone Cong Restrepo MD Primary Care Provider [phone] Encounter Details Date Type Department Care Team (Late st Contact Info) Description 01/31/2001 Abstract [facility] [address] [place] [address] Marlen Stoddard, DO [address] [place] [address] Social History Tobacco Use Types Packs/Day Years [...] on filedocumented in this encounter Care Teams Green Tire Inspector Relationship Specialty Start Date End Date Cong Restrepo MD [facility] [place] [address] PCP - General INTERNAL MEDICINE 12/09/20 03/25/23 documented as of this encounter
--- OUTSIDE RECORDS SUMMARY | 2024-06-07 07:48 | XMS_ITS | Encounter Summary ---
Author Organization [facility] Address [address] [place] [address]. [place], [place] [address] [place] [address] Care Team Providers Care Explosives Detonator Name Role Phone Cong Restrepo MD Primary Care Provider [phone] Encounter Details Date Type Department Care Team (Latest Contact Info) Description 08/11/2022 Travel Social History Tobacco Use Types Packs/Day [...] Coronavirus/COVID-19? No / Unsure 08/11/2022 3:21 PM ALLOPATHIC DOCTOR documented as of this encounter Plan of Treatment Not on file documented as of this encounter Visit Diagnoses Not on filedocumented in this encounter Care Teams Explosives Detonator Relationship Specialty Start Date End Date Cong Restrepo MD [address] [place] [address] PCP - General INTERNAL MEDICINE 12/09/20 03/25/23 documented as of this encounter
--- OUTSIDE RECORDS SUMMARY | 2024-06-07 07:48 | XMS_ITS | Encounter Summary ---
Author Organization [facility] Address [address] [place] [address]. [place] [address] [place] [address] Care Team Providers Care Reception Agent Name Role Phone Cong Restrepo MD Primary Care Provider [phone] Encounter Details Date Type Department Care Team (Late st Contact Info) Description 01/19/2005 Abstract [facility] [address] [place] [address] Marlen Stoddard, DO [address] [place] [address] Social History Tobacco Use Types Packs/Day Years [...] on filedocumented in this encounter Care Teams Reception Agent Relationship Specialty Start Date End Date Cong Restrepo MD [address] [place] [address] PCP - General INTERNAL MEDICINE 12/09/20 03/25/23 documented as of this encounter
--- OUTSIDE RECORDS SUMMARY | 2024-06-07 07:48 | XMS_ITS | Encounter Summary ---
Author Organization [facility] Address [address] [place] [address]. [place] [address] [place] [address] Care Team Providers Care [facility] Name Role Phone Unavailable Primary Care Provider Unavailabl e Encounter Details Date Type Department Care Team (Late st Contact Info) Description 12/08/2014 Abstract [facility] Emergency Room [address] [place] [address] Tim Sabillon MD Social History Tobacco Use Types Packs/Day [...] as of this encounter Visit Diagnoses Diagnosis Rash and other nonspecific skin eruption documented in this encounter
--- OUTSIDE RECORDS SUMMARY | 2024-06-07 07:48 | XMS_ITS | Encounter Summary ---
Author Organization [facility] Address [address] [place] [address]. [place] [address] [place] [address] Care Team Providers Care Officer Lieutenant Name Role Phone Unavailable Primary Care Provider Unavailabl e Encounter Details Date Type Department Care Team (Late st Contact Info) Description 09/29/2014 Abstract [facility] [address] [place] [address] Lily Bradley, SUPERVISOR [employer] [address] [place] [address] Social History Tobacco Use Types Packs/Day Years Used Date Smoking Tobacco: Never Assessed Comments Unknown Sex and Gender Information Value Date Recorded Sex Assigned at Not on file Legal Sex Female 4:36 PM CDT Gender Identity Not on file Sexual Orientation Not on file documented as of this encounter Plan of Treatment Not on file documented as of this encounter Visit Diagnoses Diagnosis Abdominal pain, left lower quadrant documented in this encounter
--- OUTSIDE RECORDS SUMMARY | 2024-06-07 07:48 | XMS_ITS | Encounter Summary ---
Author Organization [facility] Address [address] [place] [address]. [place] [address] [place] [address] Care Team Providers Care Brick Machine Operator Name Role Phone Cong Restrepo MD Primary Care Provider [phone] Encounter Details Date Type Department Care Team (Late st Contact Info) Description 01/24/2005 Abstract [facility] [address] [place] [address] Marlen Stoddard, DO [address] [place] [address] Social History Tobacco Use Types Packs/Day Years [...] on filedocumented in this encounter Care Teams Brick Machine Operator Relationship Specialty Start Date End Date Cong Restrepo MD [address] [place] [address] PCP - General INTERNAL MEDICINE 12/09/20 03/25/23 documented as of this encounter
--- OUTSIDE RECORDS SUMMARY | 2024-06-07 07:48 | XMS_ITS | Encounter Summary ---
Author Organization [facility] Address [address] [place] [address]. [place] [address] [place] [address] Care Team Providers Care Training Coordinator Name Role Phone Cong Restrepo MD Primary Care Provider [phone] Reason for Referral * Imaging (Routine) - Closed Specialty Diagnoses / Procedures Referred By Contac t Referred To Contact RADIOLOGY Diagnoses Ankle pain, left Procedures MRI ANKLE LT WO CON Pauly Grace PA Phone: tel: fax: Referral ID Status Reason Start Date Expiration Date Visits Re quested Visits Authorized [id number] Closed 01/12/2021 02/12/2022 1 1 Reason for Visit * Imaging (Routine) - Closed Specialty Diagnoses / Procedures Referred By Contac t Referred To Contact RADIOLOGY Diagnoses Ankle pain, left Procedures MRI ANKLE LT WO CON Pauly Grace PA Phone: tel: fax: Referral ID Status Reason Start Date Expiration Date Visits Re quested Visits Authorized [id number] Closed 01/12/2021 02/12/2022 1 1 Encounter Details Date Type Department Care Team (Latest Contact Info) Description 01/20/2021 7:42 AM CDT - 01/20/2021 11:59 PM CDT Hospital Encounter [facility] [address] [place], [place] [id number] Pauly Grace PA [facility] [place] [address] Discharge Disposition: Home or Self Care (Routine [...] Procedure Name Priority Date/Time Associated Diagnosis Comments MRI ANKLE LT WO CON Routine 01/20/2021 8 :32 AM CDT Ankle pain, left documented in this encounter Results * MRI ANKLE LT WO CON (01/20/2021 8:32 AM CDT) Anatomical Region Laterality Modality Ankle Magnetic Resonan ce 01/20/2021 11:3 4 AM CDT Impressions 01/20/2021 11:45 AM CDT IMPRESSION: 1. ??Partial tear of the anterior talofibular ligament at the fibular insertion. 2. ??Sprain of the deltoid ligament. 3. ??Tenosynovitis of the peroneus longus tendon. 4. ??Sprain of the spring ligament. 5. ??Small focus of grade 2 marrow stress reaction within the anterior medial tibia. Voice recognition software utilized. Referred By: PAULY GRACE Interpreted By: Anibal Berg, 01/20/2021 11:34 AM Narrative 01/20/2021 11:45 AM CDT IMAGING STUDIES: ??MRI ANKLE LT WO CON ? DATE: ??01/20/2021 7:51 AM CLINICAL HISTORY: ??Ankle pain, left ?posttrauma. Not improving with conservative therapy. COMPARISON STUDIES: Radiographs of the left ankle 01/12/2021. ?? Technique: ??Axial T1, T2 fat saturated, sagittal T1 and T2 fat saturated, coronal T1 and T2 fat saturated images acquired through the ankle. ?? FINDINGS: The anterior tibial, posterior tibial, flexor digitorum, flexor hallucis, peroneus longus and brevis tendons demonstrate normal shape configuration and signal. Small amount of fluid surrounds the peroneus longus tendon suggestive of tenosynovitis. The Achilles tendon appears unremarkable. The sinus tarsi is not edematous. The plantar fascia is not thickened. Minimal marrow edema noted within the anterior medial aspect of the tibia, no acute fracture line. Not obvious on the T1-weighted sequence. The talonavicular ligament appears intact. Mild edema within the spring ligament. The anterior talofibular ligament is thickened and surrounded by edema., Increased signal at the fibular insertion. The anterior tibiofibular ligament and the rest of the lateral collateral ligamentous complex appears intact. The deltoid ligament demonstrates loss of its normal striations and mild increased signal. Procedure Note Anibal Berg MD - 01/20/2021 IMAGING STUDIES: MRI ANKLE LT WO CON DATE: 01/20/2021 7:51 AM CLINICAL HISTORY: Ankle pain, left posttrauma. Not improving withconservative therapy. COMPARISON STUDIES: Radiographs of the left ankle 01/12/2021. Technique: Axial T1, T2 fat saturated, sagittal T1 and T2 fat saturated,coronal T1 and T2 fat saturated images acquired through the ankle. FINDINGS: The anterior tibial, posterior tibial, flexor digitorum, flexor hallucis,peroneus longus and brevis tendons demonstrate normal shape configurationand signal. Small amount of fluid surrounds the peroneus longus tendon suggestive oftenosynovitis. The Achilles tendon appears unremarkable. The sinus tarsi is not edematous. The plantar fascia is not thickened. Minimal marrow edema noted within the anterior medial aspect of the tibia,no acute fracture line. Not obvious on the T1-weighted sequence. The talonavicular ligament appears intact. Mild edema within the spring ligament. The anterior talofibular ligament is thickened and surrounded by edema.,Increased signal at the fibular insertion. The anterior tibiofibularligament and the rest of the lateral collateral ligamentous complexappears intact. The deltoid ligament demonstrates loss of its normal striations and mildincreased signal. IMPRESSION: 1. Partial tear of the anterior talofibular ligament at the fibularinsertion. 2. Sprain of the deltoid ligament. 3. Tenosynovitis of the peroneus longus tendon. 4. Sprain of the spring ligament. 5. Small focus of grade 2 marrow stress reaction within the anteriormedial tibia. Voice recognition software utilized. Referred By: PAULY GRACE Interpreted By: Anibal Berg, 01/20/2021 11:34 AM us Pauly GLASS MRI Final Result documented in this encounter Visit Diagnoses Diagnosis Ankle pain, left Pain in joint, ankle and foot documented in this encounter Care Teams Training Coordinator Relationship Specialty Start Date End Date Cong Restrepo MD [address] [place] [address] PCP - General INTERNAL MEDICINE 12/09/20 03/25/23 documented as of this encounter
--- OUTSIDE RECORDS SUMMARY | 2024-06-07 07:48 | XMS_ITS | Encounter Summary ---
Author Organization [facility] Address [address] [place] [address]. [place] [address] [place] [address] Care Team Providers Care Chief Credit Officer Name Role Phone Cong Restrepo MD Primary Care Provider [phone] Encounter Details Date Type Department Care Team (Late st Contact Info) Description 07/21/1999 Abstract [facility] [address] [place] [address] Rory Frias MD [address] [place] [address] Social History Tobacco Use Types Packs/Day Years [...] on filedocumented in this encounter Care Teams Chief Credit Officer Relationship Specialty Start Date End Date Cong Restrepo MD [address] [place] [address] PCP - General INTERNAL MEDICINE 12/09/20 03/25/23 documented as of this encounter
--- OUTSIDE RECORDS SUMMARY | 2024-06-07 07:48 | XMS_ITS | Encounter Summary ---
Author Organization [facility] Address [address] [place] [address]. [place] [address] [place] [address] Care Team Providers Care Civil Cad Designer Name Role Phone Cong Restrepo MD Primary Care Provider [phone] Encounter Details Date Type Department Care Team (Late st Contact Info) Description 03/01/1998 Abstract [facility] [address] [place] [id number] , Generic Conversion, Social History Tobacco Use [...] on filedocumented in this encounter Care Teams Civil Cad Designer Relationship Specialty Start Date End Date Cong Restrepo MD [address] [place] [address] PCP - General INTERNAL MEDICINE 12/09/20 03/25/23 documented as of this encounter
--- OUTSIDE RECORDS SUMMARY | 2024-06-07 07:48 | XMS_ITS | Encounter Summary ---
Author Organization [facility] Address [address] [place] [address]. [place], [place] [address] [place] [address] Care Team Providers Care Core Winder Name Role Phone Cong Restrepo MD Primary Care Provider [phone] Encounter Details Date Type Department Care Team (Latest Contact Info) Description 01/20/2021 Travel Social History Tobacco Use Types Packs/Day [...] on filedocumented in this encounter Care Teams Core Winder Relationship Specialty Start Date End Date Cong Restrepo MD [address] [place] [address] PCP - General INTERNAL MEDICINE 12/09/20 03/25/23 documented as of this encounter
--- OUTSIDE RECORDS SUMMARY | 2024-06-07 07:48 | XMS_ITS | Encounter Summary ---
Author Organization [facility] Address [address] [place] [address]. [place], [place] [id number] [place] [address] Care Team Providers Care Hair Assistant Name Role Phone Cong Restrepo MD Primary Care Provider [phone] Encounter Details Date Type Department Care Team (Latest Contact Info) Description 12/09/2020 Travel Social History Tobacco Use Types Packs/Day [...] have Coronavirus / COVID-19? No / Unsure 12/09/2020 11:08 AM CDT documented as of this encounter Plan of Treatment Not on file documented as of this encounter Visit Diagnoses Not on filedocumented in this encounter Care Teams Hair Assistant Relationship Specialty Start Date End Date Cong Restrepo MD [address] [place] [address] PCP - General INTERNAL MEDICINE 12/09/20 03/25/23 documented as of this encounter
--- OUTSIDE RECORDS SUMMARY | 2024-06-07 07:48 | XMS_ITS | Encounter Summary ---
Author Organization [facility] Address [address] [place] [address]. [place] [address] [place] [address] Care Team Providers Care Termite Helper Name Role Phone Cong Restrepo MD Primary Care Provider Encounter Details Date Type Department Care Team (Latest Contact Info) Description 12/09/2020 11:15 AM CDT - 12/09/2020 11:59 PM CDT Hospital Encounter [facility] [address] [place] [address] Pauly Grace PA [address] [place] [address] Discharge Disposition: Home or Self Care (Routine [...] Name Priority Date/Time Associated Diagnosis Comments XR ANKLE LT M3V Routine 12/09/2020 11:31 AM CDT Sprain documented in this encounter Results * XR ANKLE LT M3V (12/09/2020 11:31 AM CDT) Anatomical Region Laterality Modality Ankle Radiographic Chantal ging 12/09/2020 12:0 7 PM CDT Impressions 12/09/2020 12:08 PM CDT FINDINGS AND IMPRESSION: 1. ??The talar dome is intact. The base of the 5th metatarsal is unremarkable. 2. ??No fracture lines are identified. No dislocation. 3. ??No radiopaque foreign bodies or abnormal soft tissue calcifications. No destructive or lytic lesions. 4. ??Small ankle joint effusion. Referred By: PAULY GRACE Interpreted By: Anibal Berg, 12/09/2020 12:07 PM Narrative 12/09/2020 12:08 PM CDT IMAGING STUDIES: ??XR ANKLE LT M3V ? DATE: ??12/09/2020 11:22 AM CLINICAL HISTORY: ??sprain ?? . . COMPARISON STUDIES: No previous available. ?? Procedure Note Anibal Berg MD - 12/09/2020 IMAGING STUDIES: XR ANKLE LT M3V DATE: 12/09/2020 11:22 AM CLINICAL HISTORY: sprain . . COMPARISON STUDIES: No previous available. FINDINGS AND IMPRESSION: 1. The talar dome is intact. The base of the 5th metatarsal is unremarkable. 2. No fracture lines are identified. No dislocation. 3. No radiopaque foreign bodies or abnormal soft tissue calcifications.No destructive or lytic lesions. 4. Small ankle joint effusion. Referred By: PAULY GRACE Interpreted By: Anibal Berg, 12/09/2020 12:07 PM [facility] Final Result documented in this encounter Visit Diagnoses Diagnosis Sprain Unspecified site of sprain and strain documented in this encounter Care Teams Termite Helper Relationship Specialty Start Date End Date Cong Restrepo MD [address] [place] [address] PCP - General INTERNAL MEDICINE 12/09/20 03/25/23 documented as of this encounter
--- OUTSIDE RECORDS SUMMARY | 2024-06-07 07:50 | XMS_ITS | Encounter Summary ---
Author Organization [facility] Address [address] [place] [address] Care Team Providers Care Hospital Attendant Name Role Phone Unavailable Primary Care Provider Unavailabl e Encounter Details Date Type Department Care Team (Latest Contact Info) Description 03/06/2017 10:30 AM CDT - 03/06/2017 11:59 PM CDT Hospital Encounter [facility] Genetic Counseling Maternal [address] [place] [address] Larisa Whitman Discharge Disposition: Home or Self Care Social History Tobacco Use Types Packs/Day Years Used Date Smoking Tobacco: Never Assessed Sex and Gender Information Value Date Recorded Sex Assigned at Not on file Gender Identity Not on file Sexual Orientation Not on file documented as of this encounter Plan of Treatment Not on file documented as of this encounter Visit Diagnoses Not on filedocumented in this encounter
--- OUTSIDE RECORDS SUMMARY | 2024-06-07 07:50 | XMS_ITS | Clinical Summary ---
Author Organization [facility] [address] [facility] [address] [facility] [address] [place] [address] Phone Care Team Providers Care Pile Operator Name Role Phone Unavailable Primary Care Provider Unavailabl e Social History Tobacco Use Types Packs/Day Years Used Date Smoking Tobacco: Never Assessed Sex and Gender Information Value Date Recorded Sex Assigned at Not on file Gender Identity Not on file Sexual Orientation Not on file Plan of Treatment Health Maintenance Due Date Last Done Comments DTAP/TDAP/TD VACCINES (1 - Tdap) 11/14/2003 HEPATITIS B VACCINES (1 of 3 - 19+ 3-dose series) 11/14/2003 CERVICAL CANCER SCREENING 2014 INFLUENZA VACCINE (#1) 2024 HPV VACCINES Aged Out No longer eligi ble based on patient's age to complete this topic PNEUMOCOCCAL VACCINE 0-64 YEARS Aged Out No longer eligible based on patient's age to complete this topic
--- OUTSIDE RECORDS SUMMARY | 2024-06-07 07:50 | XMS_ITS | Continuity of Care Document ---
Author Organization [facility] Address [address] [place] [address] Phone Care Team Providers Care Tender Labor Name Role Phone Unavailable Unavailable Unavailable Advance Directives Directive Yes / No Effective Date File Name No Information Encounters Encounter Description Practice Location Reason(s) For Visit Diagnoses Date Provider Providers Copied on Encounter [facility], [address] [facility], [place], [place], [id number], [place] tel:[phone] [facility] OUT[facility]IENT No Information No Information Referring Provider: JUAN JOSÉ MODI, [address] [place] [address],[place], [address]. tel:[phone] Family History Family Member Type Diagnosis Age At Onset No Information Payers Payer name Insurance type Covered alliance party ID Authoriza siddhartha(s) [id number] PPO [id number] Social History Type Description Quantity Date Captured Comments Sex Female Smoking Status No Information Chief Complaint And Reason For Visit No Information History Of Present Illness Encounter Date Complaint History Of Prese nt Illness No Information Instructions Date Instruction Additional Infor mation No Information Assessments Type Assessment Date No Information
--- OUTSIDE RECORDS SUMMARY | 2024-06-07 07:50 | XMS_ITS | Encounter Summary ---
Author Organization [email or web address] Address [address] [place] [address] Care Team Providers Care Physical Education Aide Name Role Phone Unavailable Primary Care Provider Unavailabl e Reason for Referral * Outpatient Services (Routine) - Closed Specialty Diagnoses / Procedures Referred By Contac t Referred To Contact Radiology Diagnoses size accords with dates, first trimester Procedures US OB FOLLOW UP PER FETUS Parish Modi MD [address] [address] [facility] [address] [place] [address] Referral ID Status Reason Start Date Expiration Date Visits Re quested Visits Authorized [id number] Closed 03/01/2017 04/01/2018 1 1 Reason for Visit * Outpatient Services (Routine) - Closed Specialty Diagnoses / Procedures Referred By Contac t Referred To Contact Radiology Diagnoses size accords with dates, first trimester Procedures US OB FOLLOW UP PER FETUS Parish Modi MD [address] [place] [address] [place] [address] [facility] [address] [place] [address] Referral ID Status Reason Start Date Expiration Date Visits Re quested Visits Authorized [id number] Closed 03/01/2017 04/01/2018 1 1 Encounter Details Date Type Department Care Team (Latest Contact Info) Description 03/06/2017 8:30 AM CDT - 03/06/2017 11:59 PM CDT Hospital Encounter [facility] S Louis Hernandez [address] [facility] [place] [address] Parish Modi MD [address] [facility] [address] [place] [address] Discharge Disposition: Home or Self Care Social [...] Procedure Name Priority Date/Time Associated Diagnosis Comments US OB FOLLOW UP PER FETUS Routine 03/06/2017 9:22 AM CDT size accords with dates, first trimester documented in this encounter Results * US OB FOLLOW UP PER FETUS (03/06/2017 9:22 AM CDT) Anatomical Region Laterality Modality Pelvis Ultrasound 03/06/2017 9:03 AM CDT Impressions 03/06/2017 12:51 PM CDT IMPRESSION ----- Non viable single intruaterine NO FHR NOTED Subjectively low PINA Slight edema of the scalp suspected. No amonalies suspected-limited by low fluid and early gestational age. Fetus remains in a very similar position as noted on the prior exam, in a vertex presentation. The US findings were reviewed with the patient today. MFM consult dictated. No further follow up has been scheduled. Narrative 03/06/2017 12:51 PM CDT Target Study ----- Pat. Name: EM BAEZ Study Date: 03/06/2017 9:03am Pat. NO: [id number] Referring ??MD: PARISH MODI MD Site: [facility] Director Information Security: Hannah Lora RDMS : 1985 Age: 31 ----- INDICATION ----- Previous ? x3 Maternal Obesity (bmi>30 but bmi<40) Encounter to determine viability ? no FHT in Dr. Modi's office, scanned in on 03/01 with FHT but no ? movement, NO FHT today CODING ----- Diagnosis ? O34.21: Maternal care for scar from previous delivery. ?O99.212: Obesity complicating . ?E66.8: Other obesity. ?O36.80X0: with inconclusive viability: Unspecified Fetus. ?Z3A.17: Weeks Gestation of . Procedures ?67763: OB follow-up/Target per fetus. HISTORY ----- OB History ?: 6. Para: 3. ?T3A2L3. ?Children born living (T): 3. Miscarriages: 1. Ectopic: 1. MATERNAL ASSESSMENT ----- Physical Exam ? Weight 84 kg. BMI 33.84 kg/m?. METHOD ----- Transabdominal ultrasound examination. Good view. ----- Tate . Number of fetuses: 1. DATING ----- Cycle: regular cycle Method of dating: Restore dating from previous exam Assigned: Dating performed on 03/01/2017, based on the LMP Assigned GA 17 w + 2 d Assigned LUIS: 08/12/2017 GENERAL EVALUATION ----- Cardiac activity: absent. FHR 0 bpm. movements: absent. Presentation: cephalic. Placenta: Placental site: anterior. Amniotic fluid: MVP 3.5 cm. ANATOMY ----- The following structures were visualized: Head. The following structures could not be visualized: Heart. Stomach. Procedure Note Hayden Oliver DO - 03/06/2017 Target Study ----- Name:Vaughn BAEZ Date:03/06/2017 9:03am Pat. NO: [id number] MD:PARISH MODI MD [facility]Hannah KYLAH Lora :1985Age:31 ----- INDICATION ----- Previous x3 Maternal Obesity (bmi>30 but bmi<40) Encounter to determine viability no FHT in 's office, scanned in on 03/01 with FHT but no movement, NO FHTtoday CODING ----- Diagnosis O34.21: Maternal care for scar from previouscesarean delivery. O99.212: Obesity complicating . E66.8: Other obesity. O36.80X0: with inconclusive fetalviability: Unspecified Fetus. Z3A.17: Weeks Gestation of . Procedures [id number]: OB follow-up/Target per fetus. HISTORY ----- OB History : 6. Para: 3. T3A2L3. Children born living (T): 3. Miscarriages: 1.Ectopic: 1. MATERNAL ASSESSMENT ----- Physical Exam Weight 84 kg. BMI 33.84 kg/m?. METHOD ----- Transabdominal ultrasound examination. Good view. ----- Tate . Number of fetuses: 1. DATING ----- Cycle:regular cycle Method of dating:Restore dating from previous exam Assigned:Dating performed on 03/01/2017, based on the LMP Assigned GA17 w + 2 d Assigned LUIS:08/12/2017 GENERAL EVALUATION ----- Cardiac activity: absent. FHR 0 bpm. movements: absent. Presentation: cephalic. Placenta: Placental site: anterior. Amniotic fluid: MVP 3.5 cm. ANATOMY ----- The following structures were visualized: Head. The following structures could not be visualized: Heart. Stomach. IMPRESSION IMPRESSION ----- Non viable single intruaterine NO FHR NOTED Subjectively low PINA Slight edema of the scalp suspected. No amonalies suspected-limited by low fluid and early gestationalage. Fetus remains in a very similar position as noted on the prior exam, in avertex presentation. The US findings were reviewed with the patient today. MFM consult dictated. No further follow up has been scheduled. Parish Modi MD US ORDERABLES documented in this encounter Visit Diagnoses Diagnosis size accords with dates, first trimester documented in this encounter
--- OUTSIDE RECORDS SUMMARY | 2024-06-07 07:50 | XMS_ITS | Encounter Summary ---
Author Organization [facility] Address [address] [place] [address] Care Team Providers Care Career Services Officer Name Role Phone Unavailable Primary Care Provider Unavailabl e Reason for Visit * Outpatient Services (Routine) - Closed Specialty Diagnoses / Procedures Referred By Aracely watson Referred To Contact Diagnoses size accords with dates, first trimester Procedures US OB 14+ WKS SINGLE GEST US OB LESS THAN 14 WKS SINGLE GEST Parish Modi MD [address] [address] Referral ID Status Reason Start Date Expiration Date Visits Re quested Visits Authorized [id number] Closed 03/01/2017 04/01/2018 1 1 Encounter Details Date Type Department Care Team (Latest Contact Info) Description 03/01/2017 4:00 PM CDT - 03/01/2017 11:59 PM CDT Hospital Encounter [facility] [address] 3[address] [place] [address] Parish Modi MD [address] [address] Discharge Disposition: Home or Self Care [...] Priority Date/Time Associated Diagnosis Comments US OB 14+ WKS SINGLE GEST Routine 03/01/2017 5:25 PM CDT size accords with dates, first trimester documented in this encounter Results * US OB 14+ WKS SINGLE GEST (03/01/2017 5:25 PM CDT) Anatomical Region Laterality Modality Pelvis Ultrasound 03/01/2017 4:14 PM CDT Impressions 03/01/2017 5:35 PM CDT IMPRESSION ----- Single intrauterine Normal AFV FHR noted Normal appearing early anatomy -limited by early gestatioanl age. Anterior placenta. No movements noted during the duration of the US exam. The US findings were reviewed with the couple today and I have recommended a follow up US next week at [facility] and [facility] consultation. Narrative 03/01/2017 5:35 PM CDT Basic Study ----- Pat. Name: EM BAEZ Study Date: 03/01/2017 4:14pm Pat. NO: [id number] Referring ??: PARISH MODI MD Site: [facility] Dresser: Magalie Jewell RDMS : 1985 Age: 31 ----- INDICATION ----- Encounter to determine viability ? No FHT in office Previous ? X3 Maternal Obesity (bmi>30 but bmi<40) CODING ----- Diagnosis ? O36.80X0: with inconclusive viability: Unspecified Fetus. ?O34.21: Maternal care for scar from previous delivery. ?O99.212: Obesity complicating . ?E66.8: Other obesity. ?Z3A.16: Weeks Gestation of . Procedures ?71269: OB >14 wks (1st Basic). HISTORY ----- OB History ?: 6. Para: 3. ?T3A2L3. ?Children born living (T): 3. Miscarriages: 1. Ectopic: 1. MATERNAL ASSESSMENT ----- Physical Exam ? Weight 84 kg. BMI 33.84 kg/m?. METHOD ----- Transabdominal ultrasound examination. ----- Tate . Number of fetuses: 1. DATING ----- Method of dating: based on the LMP LMP on: 11/05/2016 Cycle: regular cycle GA by LMP 16 w + 4 d LUIS by LMP: 08/12/2017 Ultrasound examination on: 03/01/2017 GA by U/S based upon: AC, BPD, EFW, Femur, HC GA by U/S 16 w + 1 d LUIS by U/S: 08/15/2017 Assigned: Dating performed on 03/01/2017, based on the LMP Assigned GA 16 w + 4 d Assigned LUIS: 08/12/2017 BIOMETRY ----- Main Biometry: BPD ?31.5 ? mm ?17% ? 15w 6d ? Hadlock HC ? 124.8 ?mm ?23% ? 16w 2d ? Hadlock AC ? 98.2 ? mm ?27% ? 15w 6d ? Hadlock Femur ?22.2 ? mm ?48% ? 16w 5d ? Hadlock Weight Calculation: EFW ?150 ?g ? 24% ? 16w 1d ? Hadlock EFW (lb,oz) ?0 lb 5 ? oz Calculated by ?Hadlock ([id number]) Proportionality Ratios: HC / AC ?1.27 ? 84% ?Nicolaides FL / BPD ? 0.70 ? 98% ?Hadlock FL / AC ?0.23 ? 98% ?Hadlock Head / Face / Neck Biometry: Outer IOD ?22.50 ?mm ?12% ? 14w 6d ? Heidi Amniotic Fluid / FHR: AF MVP ? 3.0 ?cm ? FHR ?156 ?bpm ? GENERAL EVALUATION ----- Cardiac activity: present. FHR 156 bpm. movements: not visualized. Presentation: cephalic. Placenta: Placental site: posterior. Umbilical cord: Cord vessels: Visualized. Amniotic fluid: MVP 3.0 cm. ANATOMY ----- The following structures were visualized with normal appearance: Head: Head shape and size appear normal. Heart: Cardiac rhythm appears normal. Stomach: Stomach size and situs appear normal. Bladder: size and shape. The following structures could not be adequately visualized: Brain. Face. Spine. Thorax. Kidneys. The following structures were visualized: Abdominal wall. Upper extremities. Lower extremities. MATERNAL STRUCTURES ----- Cervix ?Approach - Transabdominal: Cervical length 5.10 cm. Right Ovary ? Not visualized. Left Ovary ?Size 2.5 cm x 3.4 cm x 2.0 cm. Mean 2.6 cm. Vol. 8.8 cm?. ?Simple cyst. Size 9.2 mm x 13.0 mm x 13.3 mm. Mean 11.8 mm. Vol 0.833 cm?. Procedure Note Hayden Oliver, - 03/01/2017 Basic Study ----- Pat. Name:Jose BAEZwilliamlamont Date:03/01/2017 4:14pm Pat. NO: [id number] MD:PARISH MODI MD [facility]Magalie Jewell RDMS :1985Age:31 ----- INDICATION ----- Encounter to determine viability No FHT in office Previous X3 Maternal Obesity (bmi>30 but bmi<40) CODING ----- Diagnosis O36.80X0: with inconclusive fetalviability: Unspecified Fetus. O34.21: Maternal care for scar from previouscesarean delivery. O99.212: Obesity complicating . E66.8: Other obesity. Z3A.16: Weeks Gestation of . Procedures [id number]: OB >14 wks (1st Basic). HISTORY ----- OB History : 6. Para: 3. T3A2L3. Children born living (T): 3. Miscarriages: 1.Ectopic: 1. MATERNAL ASSESSMENT ----- Physical Exam Weight 84 kg. BMI 33.84 kg/m?. METHOD ----- Transabdominal ultrasound examination. ----- Tate . Number of fetuses: 1. DATING ----- Method of dating:based on the LMP LMP on:11/05/2016 Cycle:regular cycle GA by LMP16 w + 4 d LUIS by LMP:08/12/2017 Ultrasound examination on:03/01/2017 GA by U/S based upon:AC, BPD, EFW, Femur, HC GA by U/S16 w + 1 d LUIS by U/S:08/15/2017 Assigned:Dating performed on 03/01/2017, based on the LMP Assigned GA16 w + 4 d Assigned LUIS:08/12/2017 BIOMETRY ----- Main Biometry: BPD 31.5 mm 17% 15w 6dHadlock HC 124.8 mm 23% 16w 2dHadlock AC 98.2 mm 27% 15w 6dHadlock Femur 22.2 mm 48% 16w 5dHadlock Weight Calculation: EFW 150 g 24% 16w 1dHadlock EFW (lb,oz) 0 lb 5 oz Calculated by Sal ([id number]) Proportionality Ratios: HC / AC 1.27 84%Nicolaides FL / BPD 0.70 98%Hadlock FL / AC 0.23 98%Hadlock Head / Face / Neck Biometry: Outer IOD 22.50 mm 12% 14w 6dJeanty Amniotic Fluid / FHR: AF MVP 3.0 cm FHR 156 bpm GENERAL EVALUATION ----- Cardiac activity: present. FHR 156 bpm. movements: not visualized. Presentation: cephalic. Placenta: Placental site: posterior. Umbilical cord: Cord vessels: Visualized. Amniotic fluid: MVP 3.0 cm. ANATOMY ----- The following structures were visualized with normal appearance: Head: Head shape and size appear normal. Heart: Cardiac rhythm appears normal. Stomach: Stomach size and situs appear normal. Bladder: size and shape. The following structures could not be adequately visualized: Brain. Face. Spine. Thorax. Kidneys. The following structures were visualized: Abdominal wall. Upper extremities. Lower extremities. MATERNAL STRUCTURES ----- Cervix Approach - Transabdominal: Cervical length 5.10cm. Right Ovary Not visualized. Left Ovary Size 2.5 cm x 3.4 cm x 2.0 cm. Mean 2.6 cm. Vol.8.8 cm?. Simple cyst. Size 9.2 mm x 13.0 mm x 13.3 mm. Mean11.8 mm. Vol 0.833 cm?. IMPRESSION IMPRESSION ----- Single intrauterine Normal AFV FHR noted Normal appearing early anatomy -limited by early gestatioanl age. Anterior placenta. No movements noted during the duration of the US exam. The US findings were reviewed with the couple today and I have recommendeda follow up US next week at [facility] and [facility] consultation. Parish Modi MD US ORDERABLES documented in this encounter Visit Diagnoses Diagnosis size accords with dates, first trimester documented in this encounter
== END 2024-06-03 10:41 | disposition home or self-care (01) ==
LOC: ANHSURGERY 09:50 → ANHOB2 16:27
PROVIDERS: Visit Provider Obstetrics & Gynecology
PROC: (CPT 58552; principal; 2024-06-02 12:00)
DX: N83.8 Other noninflammatory disorders of ovary, fallopian tube and broad ligament (principal); N72 Inflammatory disease of cervix uteri; N80.03 Adenomyosis of the uterus; N80.00 Endometriosis of the uterus, unspecified; J45.909 Unspecified asthma, uncomplicated; Z79.891 Long term (current) use of opiate analgesic; Z98.890 Other specified postprocedural states; Z98.51 Tubal ligation status; Z80.42 Family history of malignant neoplasm of prostate
CPT/HCPCS: 58552; S2900; 36415; 85025; 88307; 99199; A9270; J1100; J1171; J1650; J1885; J2003; J2250; J2270; J2405; J2704; J3010; J7030; J7120; J7121